=== PATIENT | female | born 1960 | race African-American/Black ===

== ENCOUNTER 2018-08-01 14:39 | Emergency (ER) | payer MEDICAID, OTHER ==
[~2018-08-01] VITALS: Ht 165.1 cm; Wt 150.7 kg
[~2018-08-01 14:39] MED LIST: FAMO20TA3 PO; HALO100A2 IM; blood pressure pill; water pill
[2018-08-01] MEDS ORDERED: ALBUTEROL SULFATE 2.5 MG/3 ML NEBU. NEB ONE (15:30)
[2018-08-01 15:37] LABS: BASO % 1 % (0-3); EOS # 0.2 x10^3/uL (0.0-0.7); EOS % 2 % (0-3); HEMATOCRIT 39.2 % (36.0-47.0); HEMOGLOBIN 13.2 g/dL (12.0-15.5); LYMPH # 1.6 x10^3/uL (1.0-4.8); LYMPH % 25 % (24-48); MEAN CORPUSCULAR HEMOGLOBIN 30 pg (25-35); MEAN CORPUSCULAR HGB CONC 34 g/dL (31-37); MEAN CORPUSCULAR VOLUME 88 fL (79-100); MONO # 0.3 x10^3/uL (0.0-1.1); MONO % 5 % (0-9); NEUT # 4.5 x10^3uL (1.8-7.7); NEUT % 67 % (31-73); PLATELET COUNT 308 x10^3/uL (140-400); RED BLOOD COUNT 4.47 x10^6/uL (3.50-5.40); WHITE BLOOD COUNT 6.6 x10^3/uL (4.0-11.0)
[2018-08-01 15:55] LABS: CALCIUM 9.3 mg/dL (8.5-10.1); CREATININE 0.8 mg/dL (0.6-1.0); GFR 89.5; POTASSIUM 3.9 mmol/L (3.5-5.1)
--- NOTE | 2018-08-01 15:58 | EKG ---
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
[2018-08-01 16:01] LABS: ALBUMIN 3.7 g/dL (3.4-5.0); ALBUMIN/GLOBULIN RATIO 0.9 (1.0-1.7); TOTAL BILIRUBIN 0.4 mg/dL (0.2-1.0); TOTAL PROTEIN 7.7 g/dL (6.4-8.2)
[2018-08-01] MEDS ORDERED: traMADol 50 MG TABLET PO ONE (16:30)
--- NOTE | 2018-08-01 16:32 | PHYS DOC ---
Past Medical History Past Medical History: Anxiety, COPD, Depression, Fibromyalgia, Hypertension Additional Past Medical Histor: obesity Past Surgical History: Cholecystectomy, , Hip Replacement, Tonsillectomy Smoking: Cigarettes, Less than 1pk/day Additional Information: PT REPORTS QUIT SMOKING X 1 YEAR, BUT OCCASIONALLY SMOKES Alcohol Use: Occasionally Drug Use: Marijuana Adult General Chief Complaint Chief Complaint: LOWER EXTREMITY SWELLING HPI HPI Patient is a 58 year old AA females who presents to the ER via POV with complaints of bilateral lower extremity pain and swelling; and shortness of breath with activity for the last week. Pt also reports recent weight gain over the last month and a half. She reports a history of arthritis and fibromyalgia and states that she usually takes tramadol for her pain. Pt reports recent air travel from [place] 2 weeks ago. She denies any chest pain, abdominal pain, or back pain. She states that she has had diarrhea for the last 3 days and has vomited x1 in the last 24 hours. Currently her pain is a 7/10, nothing has helped or worsened her pain level. Pt currently smokes less than 1/2 a pack of cigarettes a day. Review of Systems Review of Systems Constitutional: Denies fever or chills [] Eyes: Denies change in visual acuity, redness, or eye pain [] HENT: Denies nasal congestion or sore throat [] Respiratory: See HPI Cardiovascular: Denies chest pain GI: Denies abdominal pain, nausea, vomiting, or diarrhea [] Musculoskeletal: Denies back pain, see HPI Integument: Denies rash or skin lesions [] Neurologic: Denies headache, focal weakness or sensory changes [] All other systems were reviewed and found to be within normal limits, except as documented in this note. Current Medications Current Medications Current Medications Medications (Trade) Dose Ordered Sig/Amanda Start Time Stop Time Status Last Admin Dose Admin Albuterol Sulfate (Ventolin Neb Soln) 2.5 mg 1X ONCE 08/01/18 15:30 08/01/18 15:31 DC 08/01/18 15:39 2.5 MG Info (CONTRAST GIVEN -- Rx MONITORING) 1 each PRN DAILY PRN 08/01/18 17:30 08/01/18 19:32 DC Iohexol (Omnipaque 300 Mg/ml) 100 ml 1X ONCE 08/01/18 17:30 08/01/18 17:31 DC 08/01/18 17:40 100 ML Sodium Chloride 1,000 ml @ 1,000 mls/hr 1X ONCE 08/01/18 17:15 08/01/18 18:14 DC 08/01/18 17:15 1,000 MLS/HR Tramadol HCl (Ultram) 50 mg 1X ONCE 08/01/18 16:30 08/01/18 16:31 DC 08/01/18 16:34 50 MG Allergies Allergies Allergies Coded Allergies Type Severity Reaction Last Updated Verified No Known Drug Allergies 01/20/14 No Physical Exam Physical Exam Constitutional: Well developed, well nourished, no acute distress, non-toxic appearance. [] HENT: Normocephalic, atraumatic, bilateral external ears normal, oropharynx moist, no oral exudates, nose normal. [] Eyes: PERRLA, EOMI, conjunctiva normal, no discharge. [] Neck: Normal range of motion, no tenderness, supple, no stridor. [] Cardiovascular:Heart rate regular rhythm, no murmur [] Lungs & Thorax: Bilateral breath sounds clear to auscultation [] Abdomen: Bowel sounds normal, soft, no tenderness, no masses, no pulsatile masses. [] Skin: Warm, dry, no erythema, no rash. [] Back: No tenderness, no CVA tenderness. [] Extremities: No tenderness, no cyanosis, no clubbing, ROM intact, no edema. [] Neurologic: Alert and oriented X 3, normal motor function, normal sensory function, no focal deficits noted. [] Psychologic: Affect normal, judgement normal, mood normal. [] Current Patient Data Vital Signs Vital Signs Date Time Temp Pulse Resp B/P (MAP) Pulse Ox O2 Delivery O2 Flow Rate FiO2 08/01/18 19:30 98.0 90 20 148/89 (108) 95 Room Air 98.0 Lab Values Laboratory Tests Test 08/01/18 14:55 08/01/18 16:50 White Blood Count 6.6 x10^3/uL (4.0-11.0) Red Blood Count 4.47 x10^6/uL (3.50-5.40) Hemoglobin 13.2 g/dL (12.0-15.5) Hematocrit 39.2 % (36.0-47.0) Mean Corpuscular Volume 88 fL (79-100) Mean Corpuscular Hemoglobin 30 pg (25-35) Mean Corpuscular Hemoglobin Concent 34 g/dL (31-37) Red Cell Distribution Width 15.0 % (11.5-14.5) H Platelet Count 308 x10^3/uL (140-400) Neutrophils (%) (Auto) 67 % (31-73) Lymphocytes (%) (Auto) 25 % (24-48) Monocytes (%) (Auto) 5 % (0-9) Eosinophils (%) (Auto) 2 % (0-3) Basophils (%) (Auto) 1 % (0-3) Neutrophils # (Auto) 4.5 x10^3uL (1.8-7.7) Lymphocytes # (Auto) 1.6 x10^3/uL (1.0-4.8) Monocytes # (Auto) 0.3 x10^3/uL (0.0-1.1) Eosinophils # (Auto) 0.2 x10^3/uL (0.0-0.7) Basophils # (Auto) 0.0 x10^3/uL (0.0-0.2) D-Dimer (Verenice) 0.64 ug/mlFEU (0.00-0.50) H Sodium Level 141 mmol/L (136-145) Potassium Level 3.9 mmol/L (3.5-5.1) Chloride Level 102 mmol/L (98-107) Carbon Dioxide Level 31 mmol/L (21-32) Anion Gap 8 (6-14) Blood Urea Nitrogen 14 mg/dL (7-20) Creatinine 0.8 mg/dL (0.6-1.0) Estimated GFR (Cockcroft-Gault) 89.5 BUN/Creatinine Ratio 18 (6-20) Glucose Level 107 mg/dL (70-99) H Calcium Level 9.3 mg/dL (8.5-10.1) Total Bilirubin 0.4 mg/dL (0.2-1.0) Aspartate Amino Transferase (AST) 15 U/L (15-37) Alanine Aminotransferase (ALT) 16 U/L (14-59) Alkaline Phosphatase 104 U/L (46-116) Troponin I Quantitative < 0.017 ng/mL (0.000-0.055) DO-Lwj-T-Type Natriuretic Peptide 26 pg/mL (0-124) Total Protein 7.7 g/dL (6.4-8.2) Albumin 3.7 g/dL (3.4-5.0) Albumin/Globulin Ratio 0.9 (1.0-1.7) L Urine Collection Type Unknown Urine Color Yellow Urine Clarity Clear Urine pH 6.5 Urine Specific [place] 1.025 Urine Protein Negative mg/dL (NEG-TRACE) Urine Glucose (UA) Negative mg/dL (NEG) Urine Ketones (Stick) Negative mg/dL (NEG) Urine Blood Negative (NEG) Urine Nitrite Negative (NEG) Urine Bilirubin Negative (NEG) Urine Urobilinogen Dipstick 0.2 mg/dL (0.2 mg/dL) Urine Leukocyte Esterase Negative (NEG) Urine RBC 0 /HPF (0-2) Urine WBC Occ /HPF (0-4) Urine Squamous Epithelial Cells Few /LPF Urine Bacteria Few /HPF (0-FEW) Urine Mucus Slight /LPF Urine Trichomonas Present Laboratory Tests 08/01/18 14:55 Laboratory Tests 08/01/18 14:55 EKG EKG Sinus rhythm, prolonged QT, no STEMI read by Dr. Stratton Radiology/Procedures Radiology/Procedures PROCEDURE: CT ANGIOGRAPHY CHEST CTA Chest with contrast: Clinical History: elevated d dimer cp inj 100ml Omni 300 pt is 332 pounds no prev Shortness of breath. Axial helical images of the chest were obtained after the administration of 100 cc of IV Omni 300 and timed appropriately for a pulmonary arterial study. Conventional axial reconstruction was performed in addition to coronal, sagittal and bilateral oblique MIP (maximum intensity projection). This study was ordered to detect possible pulmonary embolism. There are no filling defects to suggest pulmonary embolism. The lungs and pleural margins are clear. There is no mediastinal or hilar lymphadenopathy. The thoracic aorta appears normal. Impression: 1. No evidence of pulmonary embolism. 2. No significant findings. PROCEDURE: VENOUS LOWER EXT BILATERAL Bilateral Lower Extremity Venous Doppler Ultrasound History: Swelling Comparison: None Procedure: Color flow, duplex, spectral analysis and 2D images are obtained with and without compression in the area of the common femoral vein, superficial femoral vein - femoral vein junction, main femoral vein (superficial femoral vein) and popliteal vein. Veins of the proximal calf are also imaged. Findings: There is normal duplex flow, color flow and compressibility of all visualized vein segments. No evidence of deep venous thrombus is present. Impression: No evidence of DVT. Course & Med Decision Making Course & Med Decision Making Pertinent Labs and Imaging studies reviewed. (See chart for details) Dx: swelling of bilateral lower extremities, short of breath with activity, arthritic like pain Pt was given 50 mg of tramadol PO for pain. CBC unremarkable, CMP unremarkable, UA unremarkable, D-dimer elevated 0.64, troponin <0.017 EKG negative for STEMI, CTA chest was negative for PE, Bilat LE US negative for DVT Prescription was written for [employer] and this DIRECTOR [employer] MARKETING recommend elevation and wearing compression stockings to help reduce swelling of lower extremities. Pt was instructed to follow up with PCP next week, return to the ER if symptoms worsen. Pt verbalized an understanding of d/c instructions, prescription, and follow-up and was in agreement with POC. [] Dragon Disclaimer Dragon Disclaimer This electronic medical record was generated, in whole or in part, using a voice recognition dictation system. Departure Departure Impression: Primary Impression: Swelling of both lower extremities Additional Impressions: Arthritic-like pain Short of breath on exertion Disposition: 01 HOME, SELF-CARE Condition: STABLE Referrals: NO PCP (PCP) Patient Instructions: Arthralgia, Frnh-pr-Hief, Peripheral Edema Additional Instructions: The ultrasound of your legs and the CT of your chest revealed no blood clots. Fill the prescription and use as directed for pain. Recommend elevation and wearing compression stockings to help reduce swelling. Follow up with your PCP next week, return to the ER if symptoms worsen. Scripts Hydrocodone Bit/Acetaminophen (HYDROCODONE-APAP 5-325 ) 1 Each Tablet 1 TAB PO PRN Q6HRS PRN for PAIN for 4 Days, #12 TAB 0 Refills Prov: RAHAT SHANNON CALKER 08/01/18 Problem Qualifiers Additional Impressions: Arthritic-like pain Joint pain location: unspecified Qualified Codes: M25.50 - Pain in unspecified joint RAHAT SHANNON CALKER Aug 01, 2018 16:32
[2018-08-01 17:09] LABS: BILIRUBIN,URINE NEGATIVE (NEG); CLARITY,URINE CLEAR; COLOR,URINE YELLOW; NITRITE,URINE NEGATIVE (NEG); PH,URINE 6.5; PROTEIN,URINE NEGATIVE (NEG-TRACE); UROBILINOGEN,URINE 0.2 mg/dL (0.2 mg/dL)
[2018-08-01] MEDS ORDERED: IV NORMAL SALINE 1000ML BAG 1,000 ML IV ONE (17:15)
[2018-08-01 17:26] LABS: BACTERIA,URINE FEW /HPF (0-FEW); RBC,URINE 0 /HPF (0-2); SQUAMOUS EPITHELIAL CELL,UR FEW /LPF; TRICHOMONAS,URINE PRESENT; WBC,URINE OCC /HPF (0-4)
[2018-08-01] MEDS ORDERED: CONTRAST GIVEN. MC PRN (17:30)
[2018-08-01] MEDS ORDERED: IOHEXOL 300 MG/ML 100ML VIAL. IV ONE (17:30)
--- NOTE | 2018-08-01 17:41 | RAD ---
Bilateral Lower Extremity Venous Doppler Ultrasound History: Swelling Comparison: None Procedure: Color flow, duplex, spectral analysis and 2D images are obtained with and without compression in the area of the common femoral vein, superficial femoral vein - femoral vein junction, main femoral vein (superficial femoral vein) and popliteal vein. Veins of the proximal calf are also imaged. Findings: There is normal duplex flow, color flow and compressibility of all visualized vein segments. No evidence of deep venous thrombus is present. Impression: No evidence of DVT. Electronically signed by: Jose Contreras III, MD (08/01/2018 5:37 PM) [facility]
--- NOTE | 2018-08-01 17:50 | RAD ---
CTA Chest with contrast: Clinical History: elevated d dimer cp inj 100ml Omni 300 pt is 332 pounds no prev Shortness of breath. Axial helical images of the chest were obtained after the administration of 100 cc of IV Omni 300 and timed appropriately for a pulmonary arterial study. Conventional axial reconstruction was performed in addition to coronal, sagittal and bilateral oblique MIP (maximum intensity projection). This study was ordered to detect possible pulmonary embolism. There are no filling defects to suggest pulmonary embolism. The lungs and pleural margins are clear. There is no mediastinal or hilar lymphadenopathy. The thoracic aorta appears normal. Impression: 1. No evidence of pulmonary embolism. 2. No significant findings. PQRS Compliance Statement: One or more of the following individualized dose reduction techniques were utilized for this examination: 1. Automated exposure control 2. Adjustment of the mA and/or kV according to patient size 3. Use of iterative reconstruction technique Electronically signed by: Jose Contreras III, MD (08/01/2018 5:46 PM) [facility]
[2018-08-01] MEDS ORDERED: HYDR-2761 PO (18:59)
[2018-08-01 19:30] VITALS: BP 148/89
== END 2018-08-01 19:32 | disposition home or self-care (01) ==
LOC: ER 14:39
DX: M79.89 Other specified soft tissue disorders (principal); R06.02 Shortness of breath; R19.7 Diarrhea, unspecified; R11.10 Vomiting, unspecified; M19.90 Unspecified osteoarthritis, unspecified site; F41.9 Anxiety disorder, unspecified; J44.9 Chronic obstructive pulmonary disease, unspecified; F32.9 Major depressive disorder, single episode, unspecified; I10 Essential (primary) hypertension; F17.210 Nicotine dependence, cigarettes, uncomplicated; E66.9 Obesity, unspecified; Z68.43 Body mass index [BMI] 50.0-59.9, adult; Z90.49 Acquired absence of other specified parts of digestive tract; Z98.890 Other specified postprocedural states; Z90.89 Acquired absence of other organs; Z96.649 Presence of unspecified artificial hip joint
CPT/HCPCS: 36415; 71275; 80053; 81001; 83880; 84484; 85025; 85379; 93005; 93970; 94640; 96360; 99284; J7030; J7613; Q9967

== ENCOUNTER 2019-01-12 22:37 | Inpatient (IN) | payer MEDICAID, SELFPAY ==
[~2019-01-12] VITALS: Ht 160 cm; Wt 157.4 kg
[~2019-01-12 22:37] MED LIST changes: +HYDR-2761 PO
[2019-01-13] MEDS ORDERED: IPRATRPIUM/ALBUTEROL 0.5/2.5MG 3 ML NEBU. NEB ONE (00:30)
[2019-01-13] MEDS ORDERED: fentaNYL PF VIAL 100 MCG/2 ML VIAL IV ONE (00:30)
--- NOTE | 2019-01-13 00:34 | PHYS DOC ---
Past Medical History Past Medical History: Anxiety, COPD, Depression, Fibromyalgia, Hypertension Additional Past Medical Histor: obesity Past Surgical History: Cholecystectomy, , Hip Replacement, Tonsillectomy Alcohol Use: Occasionally Drug Use: Marijuana Adult General Chief Complaint Chief Complaint: SHORTNESS OF BREATH [facility] HPI Patient is a 58 year old F who presents with shortness of air. She states that two weeks ago she had a fall and has been having back pain and shoulder pain s francis this incident. She thinks her shortness of breath may be partially related to this. She has a history of COPD, she's been feeling much more short of breath over the last 24-48 hours She also reports lower leg swelling and pain that has also been present since the fall. She denies any significant cardiac history. She's had a cough occasional sputum production she feels more short of breath when she is lying flat she notices that her legs are much more swollen than normal Review of Systems Review of Systems Constitutional: Denies fever or chills [] Eyes: Denies change in visual acuity, redness, or eye pain [] HENT: Denies nasal congestion or sore throat [] Respiratory: Reports shortness of breath [] Cardiovascular: No additional information not addressed in HPI [] GI: Denies abdominal pain, nausea, vomiting, bloody stools or diarrhea [] : Denies dysuria or hematuria [] Musculoskeletal: Reports back and shoulder pain [] Integument: Denies rash or skin lesions [] Neurologic: Denies headache, focal weakness or sensory changes [] Endocrine: Denies polyuria or polydipsia [] All other systems were reviewed and found to be within normal limits, except as documented in this note. Current Medications Current Medications Current Medications Medications (Trade) Dose Ordered Sig/Amanda Start Time Stop Time Status Last Admin Dose Admin Albuterol/ Ipratropium (Duoneb) 3 ml 1X ONCE 01/13/19 00:30 01/13/19 00:31 DC 01/13/19 00:40 3 ML Fentanyl Citrate (Fentanyl 2ml Vial) 50 mcg 1X ONCE 01/13/19 00:30 01/13/19 00:31 DC 01/13/19 00:30 50 MCG Info (CONTRAST GIVEN -- Rx MONITORING) 1 each PRN DAILY PRN 01/13/19 02:00 01/15/19 01:59 Iohexol (Omnipaque 350 Mg/ml) 100 ml 1X ONCE 01/13/19 02:15 01/13/19 02:16 DC 01/13/19 02:41 100 ML Methylprednisolone Sodium Succinate (SOLU-Medrol 125MG VIAL) 125 mg 1X ONCE 01/13/19 02:30 01/13/19 02:31 DC Allergies Allergies Allergies Coded Allergies Type Severity Reaction Last Updated Verified No Known Drug Allergies 01/20/14 No Physical Exam Physical Exam Constitutional: Well developed, well nourished, no acute distress, non-toxic appearance. [] HENT: Normocephalic, atraumatic, bilateral external ears normal, oropharynx moist, no oral exudates, nose normal. [] Eyes: PERRLA, EOMI, conjunctiva normal, no discharge. [] Neck: Normal range of motion, no tenderness, supple, no stridor. [] Cardiovascular tachycardic no definite murmurs Lungs & Thorax: Wheezing present bilaterally []increase in respiratory effort noted Abdomen: Bowel sounds normal, soft, no tenderness, no masses, no pulsatile masses. [] Skin: Warm, dry, no erythema, no rash. [] Back: There is tenderness to palpation diffusely in the lower back Extremities: Bilateral swelling in lower extremities 3-4+ edema symmetric, tenderness to palpation diffusely in addition there is tenderness to palpation of the right shoulder range of motion is somewhat limited by pain Neurologic: Alert and oriented X 3, normal motor function, normal sensory function, no focal deficits noted. [] Psychologic: Affect normal, judgement normal, mood anxious Current Patient Data Vital Signs Vital Signs Date Time Temp Pulse Resp B/P (MAP) Pulse Ox O2 Delivery O2 Flow Rate FiO2 01/13/19 00:40 94 Room Air 01/13/19 00:30 18 01/12/19 23:18 97.6 130 135/95 (108) 97.6 Lab Values Laboratory Tests Test 01/13/19 01:20 White Blood Count 6.8 x10^3/uL (4.0-11.0) Red Blood Count 4.30 x10^6/uL (3.50-5.40) Hemoglobin 12.0 g/dL (12.0-15.5) Hematocrit 37.8 % (36.0-47.0) Mean Corpuscular Volume 88 fL (79-100) Mean Corpuscular Hemoglobin 28 pg (25-35) Mean Corpuscular Hemoglobin Concent 32 g/dL (31-37) Red Cell Distribution Width 16.7 % (11.5-14.5) H Platelet Count 256 x10^3/uL (140-400) Neutrophils (%) (Auto) 65 % (31-73) Lymphocytes (%) (Auto) 25 % (24-48) Monocytes (%) (Auto) 7 % (0-9) Eosinophils (%) (Auto) 1 % (0-3) Basophils (%) (Auto) 1 % (0-3) Neutrophils # (Auto) 4.4 x10^3uL (1.8-7.7) Lymphocytes # (Auto) 1.7 x10^3/uL (1.0-4.8) Monocytes # (Auto) 0.5 x10^3/uL (0.0-1.1) Eosinophils # (Auto) 0.1 x10^3/uL (0.0-0.7) Basophils # (Auto) 0.1 x10^3/uL (0.0-0.2) Prothrombin Time 11.8 SEC (11.7-14.0) Prothrombin Time INR 0.9 (0.8-1.1) Sodium Level 144 mmol/L (136-145) Potassium Level 3.5 mmol/L (3.5-5.1) Chloride Level 105 mmol/L (98-107) Carbon Dioxide Level 31 mmol/L (21-32) Anion Gap 8 (6-14) Blood Urea Nitrogen 24 mg/dL (7-20) H Creatinine 1.1 mg/dL (0.6-1.0) H Estimated GFR (Cockcroft-Gault) 61.9 BUN/Creatinine Ratio 22 (6-20) H Glucose Level 112 mg/dL (70-99) H Calcium Level 8.7 mg/dL (8.5-10.1) Total Bilirubin 0.3 mg/dL (0.2-1.0) Aspartate Amino Transferase (AST) 13 U/L (15-37) L Alanine Aminotransferase (ALT) 20 U/L (14-59) Alkaline Phosphatase 77 U/L (46-116) Troponin I Quantitative < 0.017 ng/mL (0.000-0.055) EH-Uba-E-Type Natriuretic Peptide 42 pg/mL (0-124) Total Protein 6.3 g/dL (6.4-8.2) L Albumin 3.0 g/dL (3.4-5.0) L Albumin/Globulin Ratio 0.9 (1.0-1.7) L Laboratory Tests 01/13/19 01:20 Laboratory Tests 01/13/19 01:20 EKG EKG []EKG shows normal sinus rhythm rate of 87 no acute ischemic changes noted interpreted by me time of encounter Radiology/Procedures Radiology/Procedures [] Impressions: CT scan shows no saddle PE somewhat limited opacification of the distal arteries Course & Med Decision Making Course & Med Decision Making Pertinent Labs and Imaging studies reviewed. (See chart for details) []58-year-old obese female history of fibromyalgia as well as COPD was presenting with shortness of breath was tachycardic to 130 in triage and lactate came down on reevaluation. We worked her up I was concerned about congestive he art failure based on x-ray and lower extremity edema however BNP negative she is obese it could've been falsely negative we did give a dose of Lasix patient was having desaturations while asleep I think mostly related to obstructive sleep apnea however patient was actively wheezing in the emergency room we did give steroids and neb we did a CT scan to check for PE given the initial tachycardia although that was suboptimal study but no obvious PE was identified. Patient be admitted to the service of Dr. Devika Perales Disclaimer Diaz Disclaimer This electronic medical record was generated, in whole or in part, using a voice recognition dictation system. Departure Departure Impression: Primary Impression: Shortness of breath Disposition: ADMITTED INPATIENT Admitting Physician: Other Condition: STABLE Referrals: NO PCP (PCP) SUZAN WHATLEY MD January 13, 2019 00:34
[2019-01-13 01:36] LABS: BASO # 0.1 x10^3/uL (0.0-0.2); BASO % 1 % (0-3); EOS # 0.1 x10^3/uL (0.0-0.7); EOS % 1 % (0-3); HEMATOCRIT 37.8 % (36.0-47.0); LYMPH # 1.7 x10^3/uL (1.0-4.8); LYMPH % 25 % (24-48); MEAN CORPUSCULAR HEMOGLOBIN 28 pg (25-35); MEAN CORPUSCULAR HGB CONC 32 g/dL (31-37); MEAN CORPUSCULAR VOLUME 88 fL (79-100); MONO # 0.5 x10^3/uL (0.0-1.1); MONO % 7 % (0-9); NEUT # 4.4 x10^3uL (1.8-7.7); NEUT % 65 % (31-73); PLATELET COUNT 256 x10^3/uL (140-400); RED CELL DISTRIBUTION WIDTH 16.7 % (11.5-14.5); WHITE BLOOD COUNT 6.8 x10^3/uL (4.0-11.0)
[2019-01-13 01:45] LABS: PROTHROMBIN TIME PATIENT 11.8 SEC (11.7-14.0)
[2019-01-13 01:48] LABS: CALCIUM 8.7 mg/dL (8.5-10.1); CREATININE 1.1 mg/dL (0.6-1.0); GFR 61.9; POTASSIUM 3.5 mmol/L (3.5-5.1)
[2019-01-13 01:53] LABS: ALBUMIN/GLOBULIN RATIO 0.9 (1.0-1.7); TOTAL BILIRUBIN 0.3 mg/dL (0.2-1.0); TOTAL PROTEIN 6.3 g/dL (6.4-8.2)
[2019-01-13] MEDS ORDERED: CONTRAST GIVEN. MC PRN (02:00)
[2019-01-13] MEDS ORDERED: IOHEXOL 350 MG/ML 100 ML VIAL. IV ONE (02:15)
[2019-01-13] MEDS ORDERED: methylPREDNISolone SOD SUCC PF 125 MG/2 ML VIAL. IV ONE (02:30)
--- NOTE | 2019-01-13 03:02 | RAD ---
PQRS Compliance Statement: One or more of the following individualized dose reduction techniques were utilized for this examination: 1. Automated exposure control 2. Adjustment of the mA and/or kV according to patient size 3. Use of iterative reconstruction technique CT CHEST WITH CONTRAST, PULMONARY ANGIOGRAM History: Shortness of air, desaturation. Comparison: CT chest with contrast, CT PE August 01, 2018. Technique: Helical CT of the chest was performed after the administration of 100 cc of Omnipaque 350 intravenous contrast according to PE protocol. Axial and coronal reconstructions were obtained. 3-D MIP images were constructed to better evaluate the pulmonary arteries. Findings: Pulmonary arteries are suboptimally opacified. There is no large saddle embolus. Lobar, segmental, and subsegmental pulmonary arteries cannot be evaluated. There is no thoracic aortic dissection. There is outside of [id number] artifact that degrades image quality. Visualized thyroid is symmetric. Calcified subcarinal and right hilar lymph nodes. No adenopathy is seen in the chest. Cardiac size normal. Small pericardial effusion. There is no pleural effusion. Central airways are patent. Stable focal bronchiectasis in the central right upper lobe. Calcified granuloma right upper lobe. Mild atelectasis in the bilateral lower lobes. Discoid atelectasis basilar left lower lobe. Visualized upper abdomen is unremarkable. No compression fracture in the thoracic spine. IMPRESSION: 1. There is no large saddle pulmonary embolus. Lobar, segmental, and subsegmental pulmonary arteries cannot be evaluated due to limited contrast opacification. 2. Small pericardial effusion. Electronically signed by: Vahid Rios MD (01/13/2019 2:59 AM) [facility]
[2019-01-13] MEDS ORDERED: FUROSEMIDE 20 MG/2 ML VIAL. IVP ONE (03:45)
--- NOTE | 2019-01-13 04:36 | RAD ---
PORTABLE CHEST 1V Clinical Indication: Shortness of breath Comparison: Two-view chest February 04, 2014. Findings: Left costophrenic angle is partially excluded. Cardiac size upper limits of normal. Stable calcified granuloma right midlung. Stable tiny calcified AP window lymph node. Pulmonary vasculature upper limits of normal. No focal airspace disease. There is no pneumothorax. No pleural effusion is appreciated. No acute bone abnormality. IMPRESSION: Cardiac size and pulmonary vasculature upper limits of normal. Electronically signed by: Vahid Rios MD (01/13/2019 4:33 AM) [facility]
--- NOTE | 2019-01-13 04:49 | RAD ---
LUMBAR SPINE 3 VIEWS Clinical Indication: Back pain after fall. Morbid obesity. Comparison: None. Findings: Alignment of the lumbar spine appears anatomic. Vertebral body height is maintained. There is no evidence of acute fracture or acute malalignment. The visualized pelvic bones appear intact. Degenerative endplate spurring in the lower thoracic spine. Surgical clips along the inferior margin of the liver. IMPRESSION: No acute fracture or malalignment. Electronically signed by: Vahid Rios MD (01/13/2019 4:47 AM) [facility]
--- NOTE | 2019-01-13 04:53 | RAD ---
RIGHT SHOULDER , 3 VIEWS Clinical Indication: Pain after fall. Comparison: None. Findings: There is no acute fracture or dislocation. The acromioclavicular and glenohumeral joints are intact. There are mild degenerative changes. Small calcified granuloma peripheral right midlung. The visualized lung is clear. There is no evidence of a displaced rib fracture. There is no soft tissue abnormality. IMPRESSION: No acute fracture or dislocation. Electronically signed by: Vahid Rios MD (01/13/2019 4:50 AM) [facility]
[2019-01-13 04:54] VITALS: BP 147/108
--- NOTE | 2019-01-13 06:40 | EKG ---
[facility] [address] [place] [address] Test Date: 2019-01-13 Test Time: 02:04:00 Pat Name: BRYANNA CHACKO Department: Room: 648 1 Gender: F Waste Examiner: DMITRY : 1960 Requested By: SUZAN WHATLEY Order Number: [id number] Reading MD: Melecio Mendez Measurements Intervals [place] Rate: 86 P: 51 [place]: 178 QRS: 16 QRSD: 84 T: 44 QT: 386 QTc: 465 Interpretive Statements SINUS RHYTHM NORMAL ECG Electronically Signed On 02-06-2019 11:43:54 CDT by Melecio Mendez
[2019-01-13 07:00] VITALS: BP 152/103
[2019-01-13] MEDS: IPRATRPIUM/ALBUTEROL 0.5/2.5MG 3 ML NEBU. NEB SCH ×4 (07:12→19:51)
--- NOTE | 2019-01-13 08:58 | PDOC1 ---
History and Physical Date of Admission Date of Admission DATE: 01/13/19 TIME: 08:58 History of Present Illness History of Present Illness Ms. Driscoll, is a 58 year old F who admit from ER with acute shortness of air. sje starte with back pain and shoulder pain after a fall, then is having more trouble breathing She has a history of COPD, she's been feeling much more short of breath over the last 24-48 hours She also reports lower leg swelling and pain that has also been present since the fall. no history of cardiac She denies any significant cardiac history. She's had a cough occasional sputum production she feels more short of breath when she is lying flat she notices dulce t her legs are much more swollen than normal Past Medical History Cardiovascular: CHF, HTN Hepatobiliary: No pertinent hx Psych: No pertinent hx Rheumatologic: Fibromyalgia, Rheumatoid arthritis Social History Smoke: No ALCOHOL: none Current Problem List Problem List Problems Medical Problems: (1) Shortness of breath Status: Acute Current Medications Current Medications Current Medications Fentanyl Citrate (Fentanyl 2ml Vial) 50 mcg 1X ONCE IV Last administered on 01/13/19at 00:30; Start 01/13/19 at 00:30; Stop 01/13/19 at 00:31; Status DC Albuterol/ Ipratropium (Duoneb) 3 ml 1X ONCE NEB Last administered on 01/13/19at 00:40; Start 01/13/19 at 00:30; Stop 01/13/19 at 00:31; Status DC Iohexol (Omnipaque 350 Mg/ml) 100 ml 1X ONCE IV Last administered on 01/13/19at 02:41; Start 01/13/19 at 02:15; Stop 01/13/19 at 02:16; Status DC Info (CONTRAST GIVEN -- Rx MONITORING) 1 each PRN DAILY PRN MC SEE COMMENTS; Start 01/13/19 at 02:00; Stop 01/15/19 at 01:59 Methylprednisolone Sodium Succinate (SOLU-Medrol 125MG VIAL) 125 mg 1X ONCE IV Last administered on 01/13/19at 04:35; Start 01/13/19 at 02:30; Stop 01/13/19 at 02:31; Status DC Furosemide (Lasix) 20 mg 1X ONCE IVP Last administered on 01/13/19at 04:36; Start 01/13/19 at 03:45; Stop 01/13/19 at 03:46; Status DC Albuterol/ Ipratropium (Duoneb) 3 ml RTQID NEB Last administered on 01/13/19at 07:12; Start 01/13/19 at 08:00; Stop 01/14/19 at 07:59 Active Scripts Active Hydrocodone-Apap 5-325 (Hydrocodone Bit/Acetaminophen) 1 Each Tablet 1 Tab PO PRN Q6HRS PRN 4 Days Reported Haldol Decanoate 100 (Haloperidol Decanoate) 100 Mg/1 Ml Ampul 100 Mg IM [water pill] Acid Interlocker (Famotidine) 20 Mg Tablet 20 Mg PO [blood pressure pill] Allergies Allergies: Coded Allergies: No Known Drug Allergies (Unverified , 01/20/14) ROS General: YES: Chills, Fatigue, Malaise PSYCHOLOGICAL ROS: No: Anxiety, Behavioral Disorder, Concentration difficultie, Decreased libido, Depression, Disorientation, Hallucinations, Hostility, Irritablity, Memory difficulties, Mood Swings, Obsessive thoughts, Physical abuse, Sexual abuse, Sleep disturbances, Suicidal ideation, Other Eyes: No Blurry vision, No Decreased vision, No Double vision, No Dry eyes, No Excessive tearing, No Eye Pain, No Itchy Eyes, No Loss of vision, No Photophobia, No Scotomata, No Uses contacts, No Uses glasses, No Other HEENT: YES: Heacaches Respiratory: YES: Shortness of breath, SOB with excertion, Sputum Changes; No: Cough, Hemoptysis, Orthopnea, Pleuritic Pain, Stridor, Tachypnea, Wheezing, Other Cardiovascular: yes Chest Pain; No Palpitations, No Orthopnea, No Paroxysmal Noc. Dyspnea, No Edema, No Lt Headedness, No Other Gastrointestinal: Yes Nausea Genitourinary: YES Incontinence; No Dysuria, No Frequency, No Hematuria, No Retention, No Discharge, No Urgency, No Pain, No Flank Pain, No Other, No , No , No , No , No , No , No Musculoskeletal: Yes Joint Pain, Yes Joint Stiffness; No Gait Disturbance, No Joint Swelling, No Muscle Pain, No Muscular Weakness, No Pain In:, No Swelling In:, No Other Neurological: No Behavorial Changes, No Bowel/Bladder ControlChng, No Confus ion, No Dizziness, No Gait Disturbance, No Headaches, No Impaired Coord/balance, No Memory Loss, No Numbness/Tingling, No Seizures, No Speech Problems, No Tremors, No Visual Changes, No Weakness, No Other Skin: No Dry Skin, No Eczema, No Hair Changes, No Lumps, No Mole Changes, No Mottling, No Nail Changes, No Pruritus, No Rash, No Skin Lesion Changes, No Othe r, No Acne Physical Exam General: Alert, Cooperative, mild distress HEENT: PERRLA, EOMI Lungs: Clear to auscultation Abdomen: Soft Extremities: Normal pulses Neuro: Normal speech, Normal tone Psych/Mental Status: Mood NL Vitals Vitals Vital Signs Date Time Temp Pulse Resp B/P (MAP) Pulse Ox O2 Delivery O2 Flow Rate FiO2 01/13/19 07:14 96 Nasal Cannula 1.0 01/13/19 07:00 97.9 107 24 152/103 (119) 97.9 Labs Labs Laboratory Tests Test 01/13/19 01:20 White Blood Count 6.8 x10^3/uL (4.0-11.0) Red Blood Count 4.30 x10^6/uL (3.50-5.40) Hemoglobin 12.0 g/dL (12.0-15.5) Hematocrit 37.8 % (36.0-47.0) Mean Corpuscular Volume 88 fL (79-100) Mean Corpuscular Hemoglobin 28 pg (25-35) Mean Corpuscular Hemoglobin Concent 32 g/dL (31-37) Red Cell Distribution Width 16.7 % (11.5-14.5) Platelet Count 256 x10^3/uL (140-400) Neutrophils (%) (Auto) 65 % (31-73) Lymphocytes (%) (Auto) 25 % (24-48) Monocytes (%) (Auto) 7 % (0-9) Eosinophils (%) (Auto) 1 % (0-3) Basophils (%) (Auto) 1 % (0-3) Neutrophils # (Auto) 4.4 x10^3uL (1.8-7.7) Lymphocytes # (Auto) 1.7 x10^3/uL (1.0-4.8) Monocytes # (Auto) 0.5 x10^3/uL (0.0-1.1) Eosinophils # (Auto) 0.1 x10^3/uL (0.0-0.7) Basophils # (Auto) 0.1 x10^3/uL (0.0-0.2) Prothrombin Time 11.8 SEC (11.7-14.0) Prothromb Time International Ratio 0.9 (0.8-1.1) Sodium Level 144 mmol/L (136-145) Potassium Level 3.5 mmol/L (3.5-5.1) Chloride Level 105 mmol/L (98-107) Carbon Dioxide Level 31 mmol/L (21-32) Anion Gap 8 (6-14) Blood Urea Nitrogen 24 mg/dL (7-20) Creatinine 1.1 mg/dL (0.6-1.0) Estimated GFR (Cockcroft-Gault) 61.9 BUN/Creatinine Ratio 22 (6-20) Glucose Level 112 mg/dL (70-99) Calcium Level 8.7 mg/dL (8.5-10.1) Total Bilirubin 0.3 mg/dL (0.2-1.0) Aspartate Amino Transf (AST/SGOT) 13 U/L (15-37) Alanine Aminotransferase (ALT/SGPT) 20 U/L (14-59) Alkaline Phosphatase 77 U/L (46-116) Troponin I Quantitative < 0.017 ng/mL (0.000-0.055) GC-Lez-V-Type Natriuretic Peptide 42 pg/mL (0-124) Total Protein 6.3 g/dL (6.4-8.2) Albumin 3.0 g/dL (3.4-5.0) Albumin/Globulin Ratio 0.9 (1.0-1.7) Laboratory Tests Test 01/13/19 01:20 White Blood Count 6.8 x10^3/uL (4.0-11.0) Red Blood Count 4.30 x10^6/uL (3.50-5.40) Hemoglobin 12.0 g/dL (12.0-15.5) Hematocrit 37.8 % (36.0-47.0) Mean Corpuscular Volume 88 fL (79-100) Mean Corpuscular Hemoglobin 28 pg (25-35) Mean Corpuscular Hemoglobin Concent 32 g/dL (31-37) Red Cell Distribution Width 16.7 % (11.5-14.5) Platelet Count 256 x10^3/uL (140-400) Neutrophils (%) (Auto) 65 % (31-73) Lymphocytes (%) (Auto) 25 % (24-48) Monocytes (%) (Auto) 7 % (0-9) Eosinophils (%) (Auto) 1 % (0-3) Basophils (%) (Auto) 1 % (0-3) Neutrophils # (Auto) 4.4 x10^3uL (1.8-7.7) Lymphocytes # (Auto) 1.7 x10^3/uL (1.0-4.8) Monocytes # (Auto) 0.5 x10^3/uL (0.0-1.1) Eosinophils # (Auto) 0.1 x10^3/uL (0.0-0.7) Basophils # (Auto) 0.1 x10^3/uL (0.0-0.2) Prothrombin Time 11.8 SEC (11.7-14.0) Prothromb Time International Ratio 0.9 (0.8-1.1) Sodium Level 144 mmol/L (136-145) Potassium Level 3.5 mmol/L (3.5-5.1) Chloride Level 105 mmol/L (98-107) Carbon Dioxide Level 31 mmol/L (21-32) Anion Gap 8 (6-14) Blood Urea Nitrogen 24 mg/dL (7-20) Creatinine 1.1 mg/dL (0.6-1.0) Estimated GFR (Cockcroft-Gault) 61.9 BUN/Creatinine Ratio 22 (6-20) Glucose Level 112 mg/dL (70-99) Calcium Level 8.7 mg/dL (8.5-10.1) Total Bilirubin 0.3 mg/dL (0.2-1.0) Aspartate Amino Transf (AST/SGOT) 13 U/L (15-37) Alanine Aminotransferase (ALT/SGPT) 20 U/L (14-59) Alkaline Phosphatase 77 U/L (46-116) Troponin I Quantitative < 0.017 ng/mL (0.000-0.055) DY-Yqw-W-Type Natriuretic Peptide 42 pg/mL (0-124) Total Protein 6.3 g/dL (6.4-8.2) Albumin 3.0 g/dL (3.4-5.0) Albumin/Globulin Ratio 0.9 (1.0-1.7) VTE Prophylaxis Ordered VTE Prophylaxis Devices: No VTE Pharmacological Prophylaxi: Yes Assessment/Plan Assessment/Plan COPD, acute bronchitis acute hypoxic resp failure chest pain, r/o ACS RA, diffuse pain, on disability morbid obesity, BMI 61 admit BRADLEY TANG MD January 13, 2019 08:58
[2019-01-13] MEDS ORDERED: POTASSIUM CHLORIDE 20 MEQ TABLET.ER. PO ONE (09:30)
--- NOTE | 2019-01-13 10:05 | NUR ---
Please order PT/OT eval when pt deemed appropriate. Pt admitted for fall and COPD exacerbation. Pt would benefit from further therapy evaluation. Addendum: 01/13/19 at 1005 by KIMI CEE, PT PT Amended: Links added.
[2019-01-13] MEDS: LIDOCAINE (700MG/PATCH) PATCH. TD SCH (10:14)
[2019-01-13 11:00] VITALS: BP 133/89
[2019-01-13] MEDS: PANTOPRAZOLE 40 MG TABLET.DR. PO SCH (13:24)
[2019-01-13] MEDS: IBUPROFEN 200 MG TABLET. PO SCH ×2 (13:24→18:23)
[2019-01-13 16:00] VITALS: BP 143/90
--- NOTE | 2019-01-13 16:15 | NUR ---
YESSY consulted for dc needs. Chart reviewed and HUDSON RN. Spoke with pt in room and pt reports she is currently staying at a boarding house in [facility] and plans to move to [place] to be closer to family. SW informed pt she might look into places that are for 55 year and above that fits her budget. SW also informed her if she moves to [place] she would have to apply for [place] Medicaid. Pt reports she was diagnosed with Bipolar disorder a long time ago and goes to [facility] for services. SW provided support and counseling as pt states she is going through a lot of hardship. Discussed about acute rehab and Pt agreeable with [facility]. SW left a voice mail to [facility] regarding pt. HUDSON RN. Will continue to follow.
[2019-01-13 19:05] VITALS: BP 121/81
[2019-01-13] MEDS: PATCH REMOVAL. MC SCH (21:30)
[2019-01-13 23:05] VITALS: BP 135/91
[2019-01-14 03:05] VITALS: BP 130/88
[2019-01-14] MEDS: traMADol 50 MG TABLET PO PRN ×2 (04:29→21:49)
[2019-01-14 07:00] VITALS: BP 145/101
[2019-01-14] MEDS: IPRATRPIUM/ALBUTEROL 0.5/2.5MG 3 ML NEBU. NEB SCH ×4 (07:18→19:41)
[2019-01-14] MEDS: PANTOPRAZOLE 40 MG TABLET.DR. PO SCH (08:03)
[2019-01-14] MEDS: LIDOCAINE (700MG/PATCH) PATCH. TD SCH (08:05)
[2019-01-14] MEDS: IBUPROFEN 200 MG TABLET. PO SCH ×3 (08:05→17:41)
--- NOTE | 2019-01-14 08:34 | NUR ---
SW following pt. Spoke with Alexa at [facility] this morning and they declined to take Pt as Pt is too high functioning for acute rehab placement.
--- NOTE | 2019-01-14 09:02 | CONS ---
DATE OF CONSULTATION: 01/13/2019 ATTENDING PHYSICIAN: Dr. Briggs. REASON FOR CONSULTATION: The patient was seen at the request of Dr. Briggs for rehab evaluation about her right shoulder pain. 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 The patient was admitted on 01/13/2019 with shortness of breath. The patient admits pain in her right shoulder and upper back area after she fell recently and since then, she is having trouble with breathing in the last few days. The patient denies any cardiac history. The patient admits some cough with occasional sputum production, admits more shortness of breath while supine and also noted her legs are much more swollen than normal. Past medical history includes congestive heart failure, hypertension, fibromyalgia, rheumatoid arthritis, status post left total hip arthroplasty. The patient states that she was advised to use gloves to her hand to help with tingling and numbness for carpal tunnel syndrome. She is not known allergic to any medication. She lives in [place], [place] home, had stairs to manage. The patient since admission had CTA of the chest, which revealed no evidence of any pulmonary emboli, small pericardial effusion was noted. Chest x-ray failed to reveal any abnormalities. Lumbar spine x-rays revealed degenerative endplate spurring in the lower thoracic spine. Surgical clips along the inferior margin of the liver. X-ray of right shoulder failed to reveal any abnormality, small calcified granuloma in peripheral right mid lung was noted, mild degenerative changes noted in the AC joint and glenohumeral joint. PHYSICAL EXAMINATION: The patient on physical examination today revealed a middle-aged female. She is alert, oriented to time, place, person and circumstance and follows commands appropriately, moves all 4 extremities voluntarily where she had 4+/5 grade muscle strength and deep tendon reflexes are decreased overall with absent knee and ankle jerks and she had equal perception of touch and pinprick sensation bilaterally. Negative Tinel sign over median nerve at the wrist and over ulnar nerve at the wrist and elbow and negative Phalen sign at both wrists. She had tenderness to palpation over right shoulder and over right posterior shoulder girdle muscles. She had painful range of motion of her cervical spine. She also had some tenderness to palpation over the sacroiliac joint area. Straight leg raising test is negative bilaterally. She is independent with bed mobility and transfers and up walking without any difficulty. Her oxygen saturation on room air is around in 91-92% when she takes deep breathing. If she does not take the deep breathing, it goes down to 88-89%. She had crepitus on range of motion of her knee joint without any obvious knee joint effusion. ASSESSMENT: A middle-aged female with right shoulder sprain with recent fall, superimposed on degenerative changes in right shoulder, also chronic lower back pain without any clinical evidence of ongoing lumbar radiculopathy, morbid obesity, peripheral neuropathy, degenerative joints of both knees, congestive heart failure, hypertension, history of fibromyalgia and rheumatoid arthritis. RECOMMENDATION: To try physical modality to her right shoulder and to start her on anti-inflammatory medication and hopefully home with outpatient followup when medically stable. Dr. Briggs, I appreciate asking me to participate in the care of this interesting patient. I will be glad to follow her with you as needed for her rehabilitation. ARNOLD BAEZ MD DR: DILIP/wilian JOB#: [id number] / [id number]
[2019-01-14] MEDS ORDERED: LOSA100T14 PO (10:16)
[2019-01-14] MEDS ORDERED: ATOR10TA PO (10:16)
[2019-01-14] MEDS ORDERED: AMLO10TA4 PO (10:16)
[2019-01-14] MEDS ORDERED: MONT10TA9 PO (10:16)
[2019-01-14] MEDS ORDERED: ALBU2.5V8 INH (10:16)
[2019-01-14] MEDS ORDERED: CITA40TA12 PO (10:16)
--- NOTE | 2019-01-14 10:47 | CONS ---
DATE OF CONSULTATION: PULMONARY CONSULTATION ATTENDING PHYSICIAN: Dr. Newberry. REASON FOR CONSULTATION: Dyspnea. HISTORY OF PRESENT ILLNESS: The patient is a 58-year-old morbidly obese patient with a BMI of 61. She has history of tobacco use for 30+ years and has recently quit tobacco. She came into the hospital complaining of shortness of breath. This was in the last 24-48 hours. She also had a cough with light yellow sputum production. She had some nonspecific chest pain as well and some mild ankle edema. The patient was noted to be wheezing as well. She has a history of marijuana use. She was seen in the Emergency Room. She had a CT angiogram performed, which was reviewed by me. There was suboptimal contrast, but no central pulmonary emboli seen. There were no definite infiltrates seen. There was small pericardial effusion. She was placed on BiPAP overnight. Now, she feels better. PAST MEDICAL HISTORY: Significant for history of CHF, history of hypertension, history of arrhythmias. Fibromyalgia and rheumatoid arthritis. PAST SURGICAL HISTORY: No recent surgery. ALLERGIES: None. SOCIAL HISTORY: She no longer smokes cigarettes, but she has smoked for 30+ years. SYSTEM REVIEW: Twelve-point system obtained. Pertinent positives discussed in my history of present illness, otherwise noncontributory. She denies any headaches, no nausea or vomiting, no diarrhea, no dysuria, no focal weakness, no skin rash, no endocrine issues, no weight loss. FAMILY HISTORY: Noncontributory to lungs. MEDICATIONS: All reviewed as listed in the MRAD including Lovenox for DVT prophylaxis. PHYSICAL EXAMINATION: VITAL SIGNS: Reviewed. She is afebrile, blood pressure on the high side, pulse ox 94% on room air. HEENT: Sclerae nonicteric. NECK: Supple. LUNGS: Diminished breath sounds. No wheezing. CARDIOVASCULAR: Regular rate. ABDOMEN: Soft, obese. EXTREMITIES: With no pitting edema. LABORATORY DATA: Reviewed. White cell count 6.8, hemoglobin 12.0, platelets are 256. BUN and creatinine 24 and 1.1. IMPRESSION: 1. Dyspnea secondary to acute exacerbation of chronic obstructive pulmonary disease triggered by acute bronchitis. 2. No evidence of any pneumonia by CT angiogram. No definite central pulmonary emboli. Otherwise, this was a suboptimal study for distal emboli, but clinically less likely. 3. Marijuana abuse. The patient plans to quit that for good as of this admission. RECOMMENDATIONS: 1. Smoking cessation counseling provided and she agrees to quit tobacco as well as marijuana. 2. Add bronchodilators. 3. P.r.n. BiPAP. 4. Add empiric antibiotic for acute bronchitis. 5. Lovenox dose should be used for DVT prophylaxis dose. 6. Possible discharge in the next 24 hours. 7. The patient has history of sleep apnea for which she is compliant with CPAP. MIRIAM WORLEY MD DR: OLENA/wilian JOB#: [id number] / [id number]
[2019-01-14 11:00] VITALS: BP 136/83
[2019-01-14] MEDS: cefTRIAXone IV Push 1 GM VIAL. IVP SCH (12:57)
--- NOTE | 2019-01-14 14:14 | NUR ---
SW following pt. SW notified Pt regarding [facility] decision about rehab. Pt is provided with information for housing and community resources. Pt states she has her car with her and plans to go to her niece in [facility]. Physician notified.
--- NOTE | 2019-01-14 14:32 | PDOC ---
PROGRESS NOTES Subjective Subjective She admits less pain in her right shoulder area. Objective Objective Vital Signs Date Time Temp Pulse Resp B/P (MAP) Pulse Ox O2 Delivery O2 Flow Rate FiO2 01/14/19 11:12 Room Air 01/14/19 11:00 97.6 97 16 136/83 (100) 97 97.6 01/13/19 16:00 4.0 Intake and Output 01/14/19 07:00 Intake Total 2350 ml Output Total 602 ml Balance 1748 ml Intake Oral 2350 ml Output Urine Total 602 ml # Voids 1 Physical Exam Physical Exam She is alert,supine in bed and continues with tenderness to palpation over right shoulder and upper trapezius muscles and she is walking with roller walker. Assessment Assessment Problems Medical Problems: (1) Shortness of breath Status: Acute Plan Plan of Nursing Home with out patient follow up when medically stable. Comment Review of Relevant I have reviewed the following items jose (where applicable) has been applied. Labs Laboratory Tests Test 01/13/19 01:20 01/13/19 09:15 White Blood Count 6.8 x10^3/uL (4.0-11.0) Red Blood Count 4.30 x10^6/uL (3.50-5.40) Hemoglobin 12.0 g/dL (12.0-15.5) Hematocrit 37.8 % (36.0-47.0) Mean Corpuscular Volume 88 fL (79-100) Mean Corpuscular Hemoglobin 28 pg (25-35) Mean Corpuscular Hemoglobin Concent 32 g/dL (31-37) Red Cell Distribution Width 16.7 % (11.5-14.5) Platelet Count 256 x10^3/uL (140-400) Neutrophils (%) (Auto) 65 % (31-73) Lymphocytes (%) (Auto) 25 % (24-48) Monocytes (%) (Auto) 7 % (0-9) Eosinophils (%) (Auto) 1 % (0-3) Basophils (%) (Auto) 1 % (0-3) Neutrophils # (Auto) 4.4 x10^3uL (1.8-7.7) Lymphocytes # (Auto) 1.7 x10^3/uL (1.0-4.8) Monocytes # (Auto) 0.5 x10^3/uL (0.0-1.1) Eosinophils # (Auto) 0.1 x10^3/uL (0.0-0.7) Basophils # (Auto) 0.1 x10^3/uL (0.0-0.2) Prothrombin Time 11.8 SEC (11.7-14.0) Prothromb Time International Ratio 0.9 (0.8-1.1) Sodium Level 144 mmol/L (136-145) Potassium Level 3.5 mmol/L (3.5-5.1) Chloride Level 105 mmol/L (98-107) Carbon Dioxide Level 31 mmol/L (21-32) Anion Gap 8 (6-14) Blood Urea Nitrogen 24 mg/dL (7-20) Creatinine 1.1 mg/dL (0.6-1.0) Estimated GFR (Cockcroft-Gault) 61.9 BUN/Creatinine Ratio 22 (6-20) Glucose Level 112 mg/dL (70-99) Calcium Level 8.7 mg/dL (8.5-10.1) Total Bilirubin 0.3 mg/dL (0.2-1.0) Aspartate Amino Transf (AST/SGOT) 13 U/L (15-37) Alanine Aminotransferase (ALT/SGPT) 20 U/L (14-59) Alkaline Phosphatase 77 U/L (46-116) Troponin I Quantitative < 0.017 ng/mL (0.000-0.055) < 0.017 ng/mL (0.000-0.055) FV-Juw-A-Type Natriuretic Peptide 42 pg/mL (0-124) Total Protein 6.3 g/dL (6.4-8.2) Albumin 3.0 g/dL (3.4-5.0) Albumin/Globulin Ratio 0.9 (1.0-1.7) Medications Current Medications Fentanyl Citrate (Fentanyl 2ml Vial) 50 mcg 1X ONCE IV Last administered on 01/13/19at 00:30; Start 01/13/19 at 00:30; Stop 01/13/19 at 00:31; Status DC Albuterol/ Ipratropium (Duoneb) 3 ml 1X ONCE NEB Last administered on 01/13/19at 00:40; Start 01/13/19 at 00:30; Stop 01/13/19 at 00:31; Status DC Iohexol (Omnipaque 350 Mg/ml) 100 ml 1X ONCE IV Last administered on 01/13/19at 02:41; Start 01/13/19 at 02:15; Stop 01/13/19 at 02:16; Status DC Info (CONTRAST GIVEN -- Rx MONITORING) 1 each PRN DAILY PRN MC SEE COMMENTS; Start 01/13/19 at 02:00; Stop 01/15/19 at 01:59 Methylprednisolone Sodium Succinate (SOLU-Medrol 125MG VIAL) 125 mg 1X ONCE IV Last administered on 01/13/19at 04:35; Start 01/13/19 at 02:30; Stop 01/13/19 at 02:31; Status DC Furosemide (Lasix) 20 mg 1X ONCE IVP Last administered on 01/13/19at 04:36; Start 01/13/19 at 03:45; Stop 01/13/19 at 03:46; Status DC Albuterol/ Ipratropium (Duoneb) 3 ml RTQID NEB Last administered on 01/14/19at 07:18; Start 01/13/19 at 08:00; Stop 01/14/19 at 07:59; Status DC Lidocaine (Lidoderm) 1 patch DAILY TD Last administered on 01/14/19 08:05; Start 01/13/19 at 09:15 Miscellaneous (Lidoderm Patch Removal) 1 ea QHS MC Last administered on 01/13/19at 21:30; Start 01/13/19 at 21:00 Potassium Chloride (Klor-Con) 20 meq 1X ONCE PO Last administered on 01/13/19at 10:12; Start 01/13/19 at 09:30; Stop 01/13/19 at 09:31; Status DC Ibuprofen (Motrin) 600 mg TIDAFTMEAL PO Last administered on 01/14/19at 08:05; Start 01/13/19 at 13:00 Pantoprazole Sodium (Protonix) 40 mg DAILYAC PO Last administered on 01/14/19at 08:03; Start 01/13/19 at 13:30 Enoxaparin Sodium (Lovenox Per Pharmacy Prophylaxis Dosing) 1 each PRN DAILY PRN MC SEE COMMENTS; Start 01/13/19 at 16:15; Stop 01/14/19 at 10:26; Status DC Enoxaparin Sodium (Lovenox 60mg Syringe) 60 mg Q12HR SQ Last administered on 01/14/19at 08:06; Start 01/13/19 at 21:00; Stop 01/14/19 at 10:26; Status DC Tramadol HCl (Ultram) 50 mg PRN Q6HRS PRN PO MODERATE PAIN Last administered on 01/14/19at 04:29; Start 01/14/19 at 04:00 Albuterol/ Ipratropium (Duoneb) 3 ml RTQID NEB Last administered on 01/14/19at 11:11; Start 01/14/19 at 12:00 Ceftriaxone Sodium (Rocephin) 1 gm Q24H IVP Last administered on 01/14/19at 12:57; Start 01/14/19 at 11:00 Enoxaparin Sodium (Lovenox 40mg Syringe) 40 mg Q24H SQ ; Start 01/15/19 at 08:00 Active Scripts Active Hydrocodone-Apap 5-325 (Hydrocodone Bit/Acetaminophen) 1 Each Tablet 1 Tab PO PRN Q6HRS PRN 4 Days Reported Proair Hfa Inhaler (Albuterol Sulfate) 8.5 Gm Hfa.aer.ad 1 Puff INH PRN Q6HRS PRN Montelukast Sodium Tablet (Montelukast Sodium) 10 Mg Tablet 10 Mg PO HS Lipitor (Atorvastatin Calcium) 10 Mg Tablet 1 Tab PO DAILY Norvasc (Amlodipine Besylate) 10 Mg Tablet 10 Mg PO DAILY Losartan Potassium 100 Mg Tablet 100 Mg PO DAILY Celexa (Citalopram Hydrobromide) 40 Mg Tablet 1 Tab PO DAILY Haldol Decanoate 100 (Haloperidol Decanoate) 100 Mg/1 Ml Ampul 100 Mg IM Acid Employment Representative (Famotidine) 20 Mg Tablet 20 Mg PO Vitals/I & O Vital Sign - Last 24 Hours 01/13/19 01/13/19 01/13/19 01/13/19 15:30 16:00 19:05 19:52 Temp 98.0 98.2 98.0 98.2 Pulse 113 108 Resp 24 18 B/P (MAP) 143/90 (107) 121/81 (94) Pulse Ox 92 93 94 92 O2 Delivery Room Air Nasal Cannula Room Air Room Air O2 Flow Rate 4.0 01/13/19 01/13/19 01/14/19 5/15/19 20:00 23:05 02:50 03:05 Temp 97.5 97.5 97.5 97.5 Pulse 109 110 Resp 18 18 B/P (MAP) 135/91 (106) 130/88 (102) Pulse Ox 93 94 92 O2 Delivery Room Air Room Air Room Air 01/14/19 01/14/19 01/14/19 01/14/19 07:00 07:20 08:00 11:00 Temp 98.0 97.6 98.0 97.6 Pulse 104 97 Resp 18 16 B/P (MAP) 145/101 (116) 136/83 (100) Pulse Ox 94 94 97 O2 Delivery Room Air Room Air Room Air Room Air 01/14/19 11:12 O2 Delivery Room Air Intake and Output 01/13/19 01/13/19 01/14/19 15:00 23:00 07:00 Intake Total 750 ml 800 ml 800 ml Output Total 2 ml 600 ml Balance 748 ml 200 ml 800 ml ARNOLD BAEZ MD January 14, 2019 14:32
--- NOTE | 2019-01-14 19:05 | PDOC ---
PROGRESS NOTES Chief Complaint Chief Complaint Dyspnea secondary to acute exacerbation of chronic obstructive pulmonary disease triggered by acute bronchitis. Marijuana abuse. counseling done Morbid obesity Peripheral neuropathy History of chronic congestive heart failure most likely combined dysfunction systolic and diastolic Essential hypertension History of fibromyalgia and rheumatoid arthritis . Plan: Will resume her home medications once available for review. We have requested these from her pharmacy in [place] where she has recently moved from We'll have case management see what resources we can offer the patient moving forward for her continued care Further recommendations based on the clinical course History of Present Illness History of Present Illness Patient tearful during my encounter seems to have a lot of stress recent lead moved from [place] and does not seem to be quite acquainted to the area yet. Reassurance has been provided in all concerns were addressed to the best of my abilities Vitals Vitals Vital Signs Date Time Temp Pulse Resp B/P (MAP) Pulse Ox O2 Delivery O2 Flow Rate FiO2 01/14/19 16:07 96 Room Air 01/14/19 11:00 97.6 97 16 136/83 (100) 97.6 01/13/19 16:00 4.0 Physical Exam General: Alert, Cooperative, mild distress Abdomen: Soft Extremities: Normal pulses Review of Systems Review of Systems Review of systems is only pertinent as per history of present illness otherwise 14 point review of system is negative Assessment and Plan Assessmemt and Plan Problems Medical Problems: (1) Shortness of breath Status: Acute Comment Review of Relevant I have reviewed the following items jose (where applicable) has been applied. Labs Laboratory Tests Test 01/13/19 01:20 01/13/19 09:15 White Blood Count 6.8 x10^3/uL (4.0-11.0) Red Blood Count 4.30 x10^6/uL (3.50-5.40) Hemoglobin 12.0 g/dL (12.0-15.5) Hematocrit 37.8 % (36.0-47.0) Mean Corpuscular Volume 88 fL (79-100) Mean Corpuscular Hemoglobin 28 pg (25-35) Mean Corpuscular Hemoglobin Concent 32 g/dL (31-37) Red Cell Distribution Width 16.7 % (11.5-14.5) Platelet Count 256 x10^3/uL (140-400) Neutrophils (%) (Auto) 65 % (31-73) Lymphocytes (%) (Auto) 25 % (24-48) Monocytes (%) (Auto) 7 % (0-9) Eosinophils (%) (Auto) 1 % (0-3) Basophils (%) (Auto) 1 % (0-3) Neutrophils # (Auto) 4.4 x10^3uL (1.8-7.7) Lymphocytes # (Auto) 1.7 x10^3/uL (1.0-4.8) Monocytes # (Auto) 0.5 x10^3/uL (0.0-1.1) Eosinophils # (Auto) 0.1 x10^3/uL (0.0-0.7) Basophils # (Auto) 0.1 x10^3/uL (0.0-0.2) Prothrombin Time 11.8 SEC (11.7-14.0) Prothromb Time International Ratio 0.9 (0.8-1.1) Sodium Level 144 mmol/L (136-145) Potassium Level 3.5 mmol/L (3.5-5.1) Chloride Level 105 mmol/L (98-107) Carbon Dioxide Level 31 mmol/L (21-32) Anion Gap 8 (6-14) Blood Urea Nitrogen 24 mg/dL (7-20) Creatinine 1.1 mg/dL (0.6-1.0) Estimated GFR (Cockcroft-Gault) 61.9 BUN/Creatinine Ratio 22 (6-20) Glucose Level 112 mg/dL (70-99) Calcium Level 8.7 mg/dL (8.5-10.1) Total Bilirubin 0.3 mg/dL (0.2-1.0) Aspartate Amino Transf (AST/SGOT) 13 U/L (15-37) Alanine Aminotransferase (ALT/SGPT) 20 U/L (14-59) Alkaline Phosphatase 77 U/L (46-116) Troponin I Quantitative < 0.017 ng/mL (0.000-0.055) < 0.017 ng/mL (0.000-0.055) IJ-Xhg-U-Type Natriuretic Peptide 42 pg/mL (0-124) Total Protein 6.3 g/dL (6.4-8.2) Albumin 3.0 g/dL (3.4-5.0) Albumin/Globulin Ratio 0.9 (1.0-1.7) Medications Current Medications Fentanyl Citrate (Fentanyl 2ml Vial) 50 mcg 1X ONCE IV Last administered on 01/13/19 00:30; Start 01/13/19 at 00:30; Stop 01/13/19 at 00:31; Status DC Albuterol/ Ipratropium (Duoneb) 3 ml 1X ONCE NEB Last administered on 01/13/19at 00:40; Start 01/13/19 at 00:30; Stop 01/13/19 at 00:31; Status DC Iohexol (Omnipaque 350 Mg/ml) 100 ml 1X ONCE IV Last administered on 01/13/19at 02:41; Start 01/13/19 at 02:15; Stop 01/13/19 at 02:16; Status DC Info (CONTRAST GIVEN -- Rx MONITORING) 1 each PRN DAILY PRN MC SEE COMMENTS; Start 01/13/19 at 02:00; Stop 01/15/19 at 01:59 Methylprednisolone Sodium Succinate (SOLU-Medrol 125MG VIAL) 125 mg 1X ONCE IV Last administered on 01/13/19at 04:35; Start 01/13/19 at 02:30; Stop 01/13/19 at 02:31; Status DC Furosemide (Lasix) 20 mg 1X ONCE IVP Last administered on 01/13/19at 04:36; Start 01/13/19 at 03:45; Stop 01/13/19 at 03:46; Status DC Albuterol/ Ipratropium (Duoneb) 3 ml RTQID NEB Last administered on 01/14/19 07:18; Start 01/13/19 at 08:00; Stop 01/14/19 at 07:59; Status DC Lidocaine (Lidoderm) 1 patch DAILY TD Last administered on 01/14/19 08:05; Start 01/13/19 at 09:15 Miscellaneous (Lidoderm Patch Removal) 1 ea QHS MC Last administered on 01/13/19 21:30; Start 01/13/19 at 21:00 Potassium Chloride (Klor-Con) 20 meq 1X ONCE PO Last administered on 01/13/19at 10:12; Start 01/13/19 at 09:30; Stop 01/13/19 at 09:31; Status DC Ibuprofen (Motrin) 600 mg TIDAFTMEAL PO Last administered on 5/15/19at 17:41; Start 01/13/19 at 13:00 Pantoprazole Sodium (Protonix) 40 mg DAILYAC PO Last administered on 01/14/19at 08:03; Start 01/13/19 at 13:30 Enoxaparin Sodium (Lovenox Per Pharmacy Prophylaxis Dosing) 1 each PRN DAILY PRN MC SEE COMMENTS; Start 01/13/19 at 16:15; Stop 01/14/19 at 10:26; Status DC Enoxaparin Sodium (Lovenox 60mg Syringe) 60 mg Q12HR SQ Last administered on 01/14/19at 08:06; Start 01/13/19 at 21:00; Stop 01/14/19 at 10:26; Status DC Tramadol HCl (Ultram) 50 mg PRN Q6HRS PRN PO MODERATE PAIN Last administered on 01/14/19at 04:29; Start 01/14/19 at 04:00 Albuterol/ Ipratropium (Duoneb) 3 ml RTQID NEB Last administered on 01/14/19at 16:07; Start 01/14/19 at 12:00 Ceftriaxone Sodium (Rocephin) 1 gm Q24H IVP Last administered on 01/14/19at 12:57; Start 01/14/19 at 11:00 Enoxaparin Sodium (Lovenox 40mg Syringe) 40 mg Q24H SQ ; Start 01/15/19 at 08:00 Lactobacillus Rhamnosus (Culturelle) 1 cap BID PO ; Start 01/14/19 at 21:00 Active Scripts Active Hydrocodone-Apap 5-325 (Hydrocodone Bit/Acetaminophen) 1 Each Tablet 1 Tab PO PRN Q6HRS PRN 4 Days Reported Proair Hfa Inhaler (Albuterol Sulfate) 8.5 Gm Hfa.aer.ad 1 Puff INH PRN Q6HRS PRN Montelukast Sodium Tablet (Montelukast Sodium) 10 Mg Tablet 10 Mg PO HS Lipitor (Atorvastatin Calcium) 10 Mg Tablet 1 Tab PO DAILY Norvasc (Amlodipine Besylate) 10 Mg Tablet 10 Mg PO DAILY Losartan Potassium 100 Mg Tablet 100 Mg PO DAILY Celexa (Citalopram Hydrobromide) 40 Mg Tablet 1 Tab PO DAILY Haldol Decanoate 100 (Haloperidol Decanoate) 100 Mg/1 Ml Ampul 100 Mg IM Acid Fisher (Famotidine) 20 Mg Tablet 20 Mg PO Vitals/I & O Vital Sign - Last 24 Hours 01/13/19 01/13/19 01/13/19 01/13/19 19:05 19:52 20:00 23:05 Temp 98.2 97.5 98.2 97.5 Pulse 108 109 Resp 18 18 B/P (MAP) 121/81 (94) 135/91 (106) Pulse Ox 94 92 93 O2 Delivery Room Air Room Air Room Air Room Air 01/14/19 01/14/19 01/14/19 01/14/19 02:50 03:05 07:00 07:20 Temp 97.5 98.0 97.5 98.0 Pulse 110 104 Resp 18 18 B/P (MAP) 130/88 (102) 145/101 (116) Pulse Ox 94 92 94 94 O2 Delivery Room Air Room Air Room Air 01/14/19 01/14/19 01/14/19 01/14/19 08:00 11:00 11:12 16:07 Temp 97.6 97.6 Pulse 97 Resp 16 B/P (MAP) 136/83 (100) Pulse Ox 97 96 O2 Delivery Room Air Room Air Room Air Room Air Intake and Output 01/13/19 01/13/19 01/14/19 15:00 23:00 07:00 Intake Total 750 ml 800 ml 800 ml Output Total 2 ml 600 ml Balance 748 ml 200 ml 800 ml KASSANDRA BLACK MD January 14, 2019 19:05
[2019-01-14 19:42] VITALS: BP 145/91
[2019-01-14] MEDS: PATCH REMOVAL. MC SCH (21:00)
[2019-01-14] MEDS: LACTOBACILLUS RHAMNOSUS GG 1 CAPSULE. PO SCH (21:49)
[2019-01-14 23:14] VITALS: BP 131/79
[2019-01-15 03:06] VITALS: BP_SYST 93
[2019-01-15 07:50] VITALS: BP 150/97
[2019-01-15] MEDS: PANTOPRAZOLE 40 MG TABLET.DR. PO SCH (07:53)
[2019-01-15] MEDS ORDERED: ENOXAPARIN 40 MG/0.4 ML SYRINGE. SQ SCH (08:00)
[2019-01-15] MEDS: LACTOBACILLUS RHAMNOSUS GG 1 CAPSULE. PO SCH (08:22)
[2019-01-15] MEDS: IBUPROFEN 200 MG TABLET. PO SCH (08:23)
[2019-01-15] MEDS: LIDOCAINE (700MG/PATCH) PATCH. TD SCH (08:24)
[2019-01-15] MEDS: IPRATRPIUM/ALBUTEROL 0.5/2.5MG 3 ML NEBU. NEB SCH ×2 (09:36→12:53)
[2019-01-15] MEDS ORDERED: HYDROcodone/APAP 5/325MG 1 TAB TABLET PO PRN (10:00)
[2019-01-15] MEDS ORDERED: ALBUTEROL SULFATE 2.5 MG/3 ML NEBU. NEB PRN (10:15)
[2019-01-15] MEDS ORDERED: amLODIPine BESYLATE 10 MG TABLET PO SCH (10:30)
[2019-01-15] MEDS ORDERED: ATORVASTATIN CALCIUM 10 MG TABLET. PO SCH (10:30)
[2019-01-15] MEDS ORDERED: LOSARTAN POTASSIUM 50 MG TABLET. PO SCH (10:30)
[2019-01-15] MEDS ORDERED: CITALOPRAM 20 MG TABLET. PO SCH (10:30)
[2019-01-15] MEDS ORDERED: FAMOTIDINE 20 MG TABLET. PO SCH (10:30)
[2019-01-15 11:37] VITALS: BP 122/87
[2019-01-15 11:49] VITALS: BP 122/87
[2019-01-15] MEDS: cefTRIAXone IV Push 1 GM VIAL. IVP SCH (11:50)
--- NOTE | 2019-01-15 12:41 | PDOC ---
PULMONARY PROGRESS NOTES Subjective feels better Vitals Vital Signs Date Time Temp Pulse Resp B/P (MAP) Pulse Ox O2 Delivery O2 Flow Rate FiO2 01/15/19 11:49 91 122/87 01/15/19 11:37 98.7 20 93 BiPAP/CPAP 98.7 General: Alert, No acute distress Lungs: Clear Cardiovascular: S1 Abdomen: Soft Neuro Exam: Alert Extremities: No Edema Skin: Warm Medications Active Scripts Medications Dose Route/Sig Max Daily Dose Days Date Category Proair Hfa Inhaler (Albuterol Sulfate) 8.5 Gm Hfa.aer.ad 1 Puff INH PRN Q6HRS PRN 01/14/19 Reported Montelukast Sodium Tablet (Montelukast Sodium) 10 Mg Tablet 10 Mg PO HS 01/14/19 Reported Lipitor (Atorvastatin Calcium) 10 Mg Tablet 1 Tab PO DAILY 01/14/19 Reported Norvasc (Amlodipine Besylate) 10 Mg Tablet 10 Mg PO DAILY 01/14/19 Reported Losartan Potassium 100 Mg Tablet 100 Mg PO DAILY 01/14/19 Reported Celexa (Citalopram Hydrobromide) 40 Mg Tablet 1 Tab PO DAILY 01/14/19 Reported Hydrocodone-Apap 5-325 (Hydrocodone Bit/Acetaminophen) 1 Each Tablet 1 Tab PO PRN Q6HRS PRN 4 08/01/18 Rx Haldol Decanoate 100 (Haloperidol Decanoate) 100 Mg/1 Ml Ampul 100 Mg IM 02/04/14 Reported Acid Mechanical Design Technician (Famotidine) 20 Mg Tablet 20 Mg PO 02/04/14 Reported Impression . 1. Dyspnea secondary to acute exacerbation of chronic obstructive pulmonary disease triggered by acute bronchitis. 2. No evidence of any pneumonia by CT angiogram. No definite central pulmonary emboli. Otherwise, this was a suboptimal study for distal emboli, but clinically less likely. 3. Marijuana abuse. The patient plans to quit that for good as of this admission. Plan . 1. Smoking cessation counseling provided and she agrees to quit tobacco as well as marijuana. 2. bronchodilators. 3. P.r.n. BiPAP. 4. empiric antibiotic for acute bronchitis. 5. Lovenox 6. discharge today. Pt lives in her car 7. The patient has history of sleep apnea for which she is compliant with CPAP. MIRIAM WORLEY MD January 15, 2019 12:41
[2019-01-15] MEDS ORDERED: LEVO500T8 PO (13:01)
--- NOTE | 2019-01-15 13:06 | PDOC3 ---
Discharge Summary Visit Information Date of Admission: January 13, 2019 Date of Discharge: January 15, 2019 Admitting Diagnosis: COPD exacerbation Final Diagnosis Problems Medical Problems: (1) Shortness of breath COPD exacerbation improved Status: Acute Brief Hospital Course Allergies Allergies Coded Allergies Type Severity Reaction Last Updated Verified No Known Drug Allergies 01/20/14 No Vital Signs Vital Signs Date Time Temp Pulse Resp B/P (MAP) Pulse Ox O2 Delivery O2 Flow Rate FiO2 01/15/19 12:54 Room Air 01/15/19 11:49 91 122/87 01/15/19 11:37 98.7 20 93 98.7 Brief Hospital Course Ms. Driscoll, is a 58 year old F who admit from ER with acute shortness of air. sje starte with back pain and shoulder pain after a fall, then is having more trouble breathing She has a history of COPD, she's been feeling much more short of breath over the last 24-48 hours She also reports lower leg swelling and pain that has also been present since the fall. no history of cardiac She denies any significant cardiac history. She's had a cough occasional sputum production she feels more short of breath when she is lying flat she notices that her legs are much more swollen than normal Patient seen in consultation by pulmonology and the following recommendations were given from her big machine consultant which were greatly appreciated. RECOMMENDATIONS: 1. Smoking cessation counseling provided and she agrees to quit tobacco as well as marijuana. 2. Add bronchodilators. 3. P.r.n. BiPAP. 4. Add empiric antibiotic for acute bronchitis. 5. Lovenox dose should be used for DVT prophylaxis dose. 6. Possible discharge in the next 24 hours. 7. The patient has history of sleep apnea for which she is compliant with CPAP. She was seen in consultation by Dr. Rudd as well due to some intractable pain. Patient was given recommendations regarding dietary changes and lifestyle changes. She is going through quite a bit of social disturbances given that she recently moved from [place] in despite having family members she does not have a place to stay. She has been living in her car for quite some time now. Case management has worked diligently noted to get her help and resources in the area and she is going to be going to [facility] in the area so hopefully she will get a place to stay, all of her concerns were addressed to the best of my abilities I have provided a prescription for levofloxacin she can finish her course of antibiotics in the outpatient setting signs and symptoms of alarm discussed prior to discharge all of her concerns were addressed to the best of my abilities Gen.: well-developed well-nourished in no apparent distress Head: Normal shape atraumatic Eyes: Pupils equal reactive to light and accommodation, normal conjunctivae and lids Ears: Normal shape Nose: Normal shape no trauma Mouth: No exudates of the back of throat no thrush no lesions Neck: Supple no JVD no carotid bruit or lymphadenopathy no thyromegaly Chest: Lungs clear to auscultation with good inspiratory effort no crackles rales or rhonchi Cardiovascular: S1-S2 regular rhythm no murmurs gallops or rubs Abdomen: Bowel sounds present soft nontender no hepatosplenomegaly appreciated sign Extremities: No clubbing no cyanosis no edema peripheral pulses palpated bilaterally Neurological: Alert awake oriented in person time place and situation, cranial nerves II through XII intact, no motor or sensory deficits appreciated Psych: Appropriate mood, cooperative Discharge Information Condition at Discharge: Improved Follow Up: Weeks Disposition/Orders: D/C to Home Scheduled Amlodipine Besylate (Norvasc) 10 Mg Tablet, 10 MG PO DAILY for hypertension, (Reported) Entered as Reported by: MALDONADO TIJERINA on 01/14/19 1016 Last Taken: 10 on Unknown Date & Time Last Action: Continued on 01/15/19958 by KASSANDRA BLACK MD Atorvastatin Calcium (Lipitor) 10 Mg Tablet, 1 TAB PO DAILY for hypercholesterolemia, #30 Ref 5 (Reported) Entered as Reported by: MALDONADO TIJERINA on 01/14/19 1016 Last Taken: 10 on Unknown Date & Time Last Action: Continued on 01/15/19958 by KASSANDRA BLACK MD Citalopram Hydrobromide (Celexa) 40 Mg Tablet, 1 TAB PO DAILY for depression, #30 Ref 1 (Reported) Entered as Reported by: MALDONADO TIJERINA on 01/14/19 1016 Last Taken: 40 on Unknown Date & Time Last Action: Converted on 01/15/19958 by KASSANDRA BLACK MD Levofloxacin (Levofloxacin) 500 Mg Tablet, 1 TAB PO DAILY for COPD, #3 Prescribed by: KASSANDRA BLACK MD on 01/15/19 1301 Losartan Potassium (Losartan Potassium) 100 Mg Tablet, 100 MG PO DAILY for HYPERTENSION, (Reported) Entered as Reported by: MALDONADO TIJERINA on 01/14/19 1016 Last Taken: 100 on Unknown Date & Time Last Action: Converted on 01/15/19958 by KASSANDRA BLACK MD Montelukast Sodium (Montelukast Sodium Tablet) 10 Mg Tablet, 10 MG PO HS for FOR ASTHMA, #30 Ref 0 (Reported) Entered as Reported by: MALDONADO TIJERINA on 01/14/19 1016 Last Taken: 10 on Unknown Date & Time Last Action: Converted on 01/15/19958 by KASSANDRA BLACK MD Scheduled PRN Albuterol Sulfate (Proair Hfa Inhaler) 8.5 Gm Hfa.aer.ad, 1 PUFF INH PRN Q6HRS PRN for SHORTNESS OF BREATH, Ref 0 (Reported) Entered as Reported by: MALDONADO TIJERINA on 01/14/19 1016 Last Taken: 1 on Unknown Date & Time Last Action: Continued on 01/15/19958 by KASSANDRA BLACK MD Hydrocodone Bit/Acetaminophen (Hydrocodone-Apap 5-325 ) 1 Each Tablet, 1 TAB PO PRN Q6HRS PRN for PAIN for 4 Days, #12 Ref 0 Prescribed by: RAHAT SHANNON APRN on 08/01/181858 Last Action: Continued on 01/15/19958 by KASSANDRA BLACK MD Miscellaneous Medications Famotidine (Acid Utilization Management Rn) 20 Mg Tablet, 20 MG PO, (Reported) Entered as Reported by: RYAN COOK on 02/04/141620 Last Action: Continued on 01/15/19958 by KASSANDRA BLACK MD Haloperidol Decanoate (Haldol Decanoate 100) 100 Mg/1 Ml Ampul, 100 MG IM, (Reported) Entered as Reported by: RYAN COOK on 02/04/14 162 Discontinued Medications [blood pressure pill] , (Reported) Entered as Reported by: RYAN COOK on 02/04/141620 Last Action: Discontinued on 01/14/19 1016 by MALDONADO TIJERINA [water pill] , (Reported) Entered as Reported by: RYAN COOK on 02/04/14 162 Last Action: Discontinued on 01/14/19 1016 by KASSANDRA CHAUDHARI MD January 15, 2019 13:06
[2019-01-15] MEDS ORDERED: TRAM1TAB4 PO (13:22)
--- NOTE | 2019-01-15 14:16 | NUR ---
Discharge Note: BRYANNA CHACKO Discharge instructions and discharge home medications reviewed with Patient and a copy given. All questions have been answered and understanding verbalized. The following instructions and handouts were given: Discharge Instructions, Prescriptions, COPD and Smoking Cessation Teaching Materials. Discontinued lines and drains: Left Hand PIV removed accidentally by patient, Catheter intact.
--- NOTE | 2019-01-15 14:46 | PDOC ---
PROGRESS NOTES Subjective Subjective No new complaints. Objective Objective Vital Signs Date Time Temp Pulse Resp B/P (MAP) Pulse Ox O2 Delivery O2 Flow Rate FiO2 01/15/19 12:54 Room Air 01/15/19 11:49 91 122/87 01/15/19 11:37 98.7 20 93 98.7 01/13/19 16:00 4.0 Intake and Output 01/15/19 06:59 Intake Total 840 ml Output Total 600 ml Balance 240 ml Intake Oral 840 ml Output Urine Total 600 ml # Voids 3 Physical Exam Physical Exam She is alert and comfortable sitting in bedside chair and less pain right shoulder area. She had tenderness to palpation over right shoulder and right upper trapezius muscle area and some limitation of right shoulder abduction at extremes. Assessment Assessment Problems Medical Problems: (1) Shortness of breath Status: Acute Plan Plan of Care I have again reviewed with her home program of physical modalities,trigger point massage and relaxed stretching exercises to right upper trapezius muscle,Codman's exercises to right shoulder,isometric strengthening exercises to quadriceps muscles and physical modalities and relaxed stretching exercises to low back and proper body mechanics and avoid any activity that irritates her right shoulder and low back. Comment Review of Relevant I have reviewed the following items jose (where applicable) has been applied. Medications Current Medications Fentanyl Citrate (Fentanyl 2ml Vial) 50 mcg 1X ONCE IV Last administered on 01/13/19at 00:30; Start 01/13/19 at 00:30; Stop 01/13/19 at 00:31; Status DC Albuterol/ Ipratropium (Duoneb) 3 ml 1X ONCE NEB Last administered on 01/13/19at 00:40; Start 01/13/19 at 00:30; Stop 01/13/19 at 00:31; Status DC Iohexol (Omnipaque 350 Mg/ml) 100 ml 1X ONCE IV Last administered on 01/13/19at 02:41; Start 01/13/19 at 02:15; Stop 01/13/19 at 02:16; Status DC Info (CONTRAST GIVEN -- Rx MONITORING) 1 each PRN DAILY PRN MC SEE COMMENTS; Start 01/13/19 at 02:00; Stop 01/15/19 at 01:59; Status DC Methylprednisolone Sodium Succinate (SOLU-Medrol 125MG VIAL) 125 mg 1X ONCE IV Last administered on 01/13/19at 04:35; Start 01/13/19 at 02:30; Stop 01/13/19 at 02:31; Status DC Furosemide (Lasix) 20 mg 1X ONCE IVP Last administered on 01/13/19 04:36; Start 01/13/19 at 03:45; Stop 01/13/19 at 03:46; Status DC Albuterol/ Ipratropium (Duoneb) 3 ml RTQID NEB Last administered on 01/14/19 07:18; Start 01/13/19 at 08:00; Stop 01/14/19 at 07:59; Status DC Lidocaine (Lidoderm) 1 patch DAILY TD Last administered on 01/15/19 08:24; Start 01/13/19 at 09:15 Miscellaneous (Lidoderm Patch Removal) 1 ea QHS MC Last administered on 01/14/19 21:00; Start 01/13/19 at 21:00 Potassium Chloride (Klor-Con) 20 meq 1X ONCE PO Last administered on 01/13/19 10:12; Start 01/13/19 at 09:30; Stop 01/13/19 at 09:31; Status DC Ibuprofen (Motrin) 600 mg TIDAFTMEAL PO Last administered on 01/15/19 08:23; Start 01/13/19 at 13:00 Pantoprazole Sodium (Protonix) 40 mg DAILYAC PO Last administered on 01/15/19 07:53; Start 01/13/19 at 13:30 Enoxaparin Sodium (Lovenox Per Pharmacy Prophylaxis Dosing) 1 each PRN DAILY PRN MC SEE COMMENTS; Start 01/13/19 at 16:15; Stop 01/14/19 at 10:26; Status DC Enoxaparin Sodium (Lovenox 60mg Syringe) 60 mg Q12HR SQ Last administered on 01/14/19 08:06; Start 01/13/19 at 21:00; Stop 01/14/19 at 10:26; Status DC Tramadol HCl (Ultram) 50 mg PRN Q6HRS PRN PO MODERATE PAIN 4-6 Last administered on 01/14/19at 21:49; Start 01/14/19 at 04:00 Albuterol/ Ipratropium (Duoneb) 3 ml RTQID NEB Last administered on 5/16/19at 12:53; Start 01/14/19 at 12:00 Ceftriaxone Sodium (Rocephin) 1 gm Q24H IVP Last administered on 01/15/19 11:50; Start 01/14/19 at 11:00 Enoxaparin Sodium (Lovenox 40mg Syringe) 40 mg Q24H SQ Last administered on 01/15/19 08:24; Start 01/15/19 at 08:00 Lactobacillus Rhamnosus (Culturelle) 1 cap BID PO Last administered on 01/15/19at 08:22; Start 01/14/19 at 21:00 Albuterol Sulfate (Ventolin Neb Soln) 2.5 mg PRN Q6HRS PRN NEB SHORTNESS OF BREATH; Start 01/15/19 at 10:15 Amlodipine Besylate (Norvasc) 10 mg DAILY PO Last administered on 01/15/19 11:49; Start 01/15/19 at 10:30 Atorvastatin Calcium (Lipitor) 10 mg DAILY PO Last administered on 01/15/19 11:49; Start 01/15/19 at 10:30 Famotidine (Pepcid) 20 mg DAILY PO Last administered on 01/15/19 11:49; Start 01/15/19 at 10:30 Acetaminophen/ Hydrocodone Bitart (Lortab 5/325) 1 tab PRN Q6HRS PRN PO SEVERE PAIN 7-10; Start 01/15/19 at 10:00 Citalopram Hydrobromide (CeleXA) 40 mg DAILY PO Last administered on 01/15/19 11:47; Start 01/15/19 at 10:30 Losartan Potassium (Cozaar) 100 mg DAILY PO Last administered on 01/15/19 11:48; Start 01/15/19 at 10:30 Montelukast Sodium (Singulair) 10 mg QHS PO ; Start 01/15/19 at 21:00 Active Scripts Active Tramadol-Acetaminophn 37.5-325 (Tramadol Hcl/Acetaminophen) 1 Each Tablet 1 Tab PO TID Levofloxacin 500 Mg Tablet 1 Tab PO DAILY Hydrocodone-Apap 5-325 (Hydrocodone Bit/Acetaminophen) 1 Each Tablet 1 Tab PO PRN Q6HRS PRN 4 Days Reported Proair Hfa Inhaler (Albuterol Sulfate) 8.5 Gm Hfa.aer.ad 1 Puff INH PRN Q6HRS PRN Montelukast Sodium Tablet (Montelukast Sodium) 10 Mg Tablet 10 Mg PO HS Lipitor (Atorvastatin Calcium) 10 Mg Tablet 1 Tab PO DAILY Norvasc (Amlodipine Besylate) 10 Mg Tablet 10 Mg PO DAILY Losartan Potassium 100 Mg Tablet 100 Mg PO DAILY Celexa (Citalopram Hydrobromide) 40 Mg Tablet 1 Tab PO DAILY Haldol Decanoate 100 (Haloperidol Decanoate) 100 Mg/1 Ml Ampul 100 Mg IM Acid Credit Representative (Famotidine) 20 Mg Tablet 20 Mg PO Vitals/I & O Vital Sign - Last 24 Hours 01/14/19 01/14/19 01/14/19 01/14/19 16:07 19:42 19:43 20:11 Temp 97.7 97.7 Pulse 103 Resp 16 B/P (MAP) 145/91 (109) Pulse Ox 96 95 95 O2 Delivery Room Air Room Air Room Air Room Air 01/14/19 01/14/19 01/14/19 01/15/19 21:49 22:56 23:14 03:06 Temp 98.6 98.6 Pulse 96 91 Resp 18 18 16 18 B/P (MAP) 131/79 (96) 93/ Pulse Ox 96 98 O2 Delivery Room Air BiPAP/CPAP Room Air BiPAP/CPAP 01/15/19 01/15/19 01/15/19 01/15/19 07:50 08:00 09:37 11:37 Temp 98.3 98.7 98.3 98.7 Pulse 93 91 Resp 20 20 B/P (MAP) 150/97 (114) 122/87 (99) Pulse Ox 99 98 93 O2 Delivery BiPAP/CPAP Room Air Room Air BiPAP/CPAP 01/15/19 01/15/19 01/15/19 11:48 11:49 12:54 Pulse 91 91 B/P (MAP) 122/87 122/87 O2 Delivery Room Air Intake and Output 01/14/19 01/14/19 01/15/19 14:59 22:59 06:59 Intake Total 480 ml 240 ml 120 ml Output Total 500 ml 100 ml Balance 480 ml -260 ml 20 ml ARNOLD BAEZ MD January 15, 2019 14:46
[2019-01-15] MEDS ORDERED: NORMAL SALINE IV SCH (15:00)
[2019-01-15] MEDS ORDERED: GENTAMICIN SULFATE IV SCH (15:00)
[2019-01-15] MEDS ORDERED: cefTRIAXone IV Push 2 GM VIAL. IVP SCH (15:00)
[2019-01-15] MEDS ORDERED: MONTELUKAST SODIUM 10 MG TABLET. PO SCH (21:00)
== END 2019-01-15 14:17 | disposition home or self-care (01) | DRG 189 ==
LOC: ER 22:37 → 6 SOUTH 01-13 03:49
PROVIDERS: ADMIT Internal Medicine; ATTEND Internal Medicine
PROC: 5A09357 Assistance with Respiratory Ventilation, Less than 24 Consecutive Hours, Continuous Positive Airway Pressure (ICD-10-PCS; principal; 2019-01-14)
PROC: 5A09357 Assistance with Respiratory Ventilation, Less than 24 Consecutive Hours, Continuous Positive Airway Pressure (ICD-10-PCS; 2019-01-15)
DX: J96.01 Acute respiratory failure with hypoxia (principal); J44.0 Chronic obstructive pulmonary disease with (acute) lower respiratory infection; Z68.44 Body mass index [BMI] 60.0-69.9, adult; J44.1 Chronic obstructive pulmonary disease with (acute) exacerbation; J20.9 Acute bronchitis, unspecified; E66.01 Morbid (severe) obesity due to excess calories; F32.9 Major depressive disorder, single episode, unspecified; F41.9 Anxiety disorder, unspecified; G89.29 Other chronic pain; M79.7 Fibromyalgia; Z96.642 Presence of left artificial hip joint; I11.0 Hypertensive heart disease with heart failure; M06.9 Rheumatoid arthritis, unspecified; G62.9 Polyneuropathy, unspecified; M17.0 Bilateral primary osteoarthritis of knee; F12.10 Cannabis abuse, uncomplicated; G47.30 Sleep apnea, unspecified; F17.210 Nicotine dependence, cigarettes, uncomplicated; I50.9 Heart failure, unspecified; Z90.49 Acquired absence of other specified parts of digestive tract; Z71.6 Tobacco abuse counseling
CPT/HCPCS: 36415; 71045; 71275; 72100; 73030; 80053; 83880; 84484; 85025; 85610; 93005; 94640; 94660; 94760; 96374; 96375; 99406; J0696; J1650; J1940; J2930; J3010; J7620; Q9967; 97110; 97116; 97530; 97535; 99285-25

== ENCOUNTER 2019-04-09 21:45 | Inpatient (IN) | payer MEDICAID ==
[~2019-04-09] VITALS: Ht 160 cm; Wt 158.8 kg
[~2019-04-09 21:45] MED LIST changes: +ALBU2.5V8 INH; +AMLO10TA4 PO; +ATOR10TA PO; +CITA40TA12 PO; +LEVO500T8 PO; +LOSA100T14 PO; +MONT10TA49 PO; +TRAM1TAB4 PO
--- NOTE | 2019-04-09 22:03 | PHYS DOC ---
Past Medical History Past Medical History: Anxiety, CHF, COPD, Depression, Fibromyalgia, High Cholesterol, Hypertension Additional Past Medical Histor: obesity Past Surgical History: Cholecystectomy, , Hip Replacement, Tonsillectomy Alcohol Use: Occasionally Drug Use: Marijuana Adult General Chief Complaint Chief Complaint: CHEST PAIN HPI HPI Patient is a 58 year old [f__sex] who presents with [] Review of Systems Review of Systems Constitutional: Denies fever or chills [] Eyes: Denies change in visual acuity, redness, or eye pain [] HENT: Denies nasal congestion or sore throat [] Respiratory: Denies cough or shortness of breath [] Cardiovascular: No additional information not addressed in HPI [] GI: Denies abdominal pain, nausea, vomiting, bloody stools or diarrhea [] : Denies dysuria or hematuria [] Musculoskeletal: Denies back pain or joint pain [] Integument: Denies rash or skin lesions [] Neurologic: Denies headache, focal weakness or sensory changes [] Endocrine: Denies polyuria or polydipsia [] All other systems were reviewed and found to be within normal limits, except as documented in this note. Current Medications Current Medications Current Medications Medications (Trade) Dose Ordered Sig/Amanda Start Time Stop Time Status Last Admin Dose Admin Aspirin (Angel Luis Aspirin) 325 mg 1X ONCE 04/09/19 22:15 04/09/19 22:16 DC 04/09/19 22:20 325 MG Info (CONTRAST GIVEN -- Rx MONITORING) 1 each PRN DAILY PRN 04/10/19 00:15 04/12/19 00:14 Iohexol (Omnipaque 350 Mg/ml) 100 ml 1X ONCE 04/10/19 00:15 04/10/19 00:16 DC 04/10/19 00:21 100 ML Sodium Chloride 1,000 ml @ 1,000 mls/hr 1X ONCE 04/09/19 23:45 04/10/19 00:44 DC 04/09/19 23:50 1,000 MLS/HR Allergies Allergies Allergies Coded Allergies Type Severity Reaction Last Updated Verified No Known Drug Allergies 01/20/14 No Physical Exam Physical Exam Constitutional: Well developed, well nourished, no acute distress, non-toxic appearance. [] HENT: Normocephalic, atraumatic, bilateral external ears normal, oropharynx moist, no oral exudates, nose normal. [] Eyes: PERRLA, EOMI, conjunctiva normal, no discharge. [] Neck: Normal range of motion, no tenderness, supple, no stridor. [] Cardiovascular:Heart rate regular rhythm, no murmur [] Lungs & Thorax: Bilateral breath sounds clear to auscultation [] Abdomen: Bowel sounds normal, soft, no tenderness, no masses, no pulsatile masses. [] Skin: Warm, dry, no erythema, no rash. [] Back: No tenderness, no CVA tenderness. [] Extremities: No tenderness, no cyanosis, no clubbing, ROM intact, no edema. [] Neurologic: Alert and oriented X 3, normal motor function, normal sensory function, no focal deficits noted. [] Psychologic: Affect normal, judgement normal, mood normal. [] Current Patient Data Vital Signs Vital Signs Date Time Temp Pulse Resp B/P (MAP) Pulse Ox O2 Delivery O2 Flow Rate FiO2 04/10/19 00:31 102 20 142/102 (115) 94 Nasal Cannula 2.0 04/09/19 21:45 98.0 98.0 Lab Values Laboratory Tests Test 04/09/19 22:01 White Blood Count 6.0 x10^3/uL (4.0-11.0) Red Blood Count 4.51 x10^6/uL (3.50-5.40) Hemoglobin 13.0 g/dL (12.0-15.5) Hematocrit 39.5 % (36.0-47.0) Mean Corpuscular Volume 88 fL (79-100) Mean Corpuscular Hemoglobin 29 pg (25-35) Mean Corpuscular Hemoglobin Concent 33 g/dL (31-37) Red Cell Distribution Width 16.0 % (11.5-14.5) H Platelet Count 324 x10^3/uL (140-400) Neutrophils (%) (Auto) 62 % (31-73) Lymphocytes (%) (Auto) 25 % (24-48) Monocytes (%) (Auto) 9 % (0-9) Eosinophils (%) (Auto) 3 % (0-3) Basophils (%) (Auto) 1 % (0-3) Neutrophils # (Auto) 3.7 x10^3/uL (1.8-7.7) Lymphocytes # (Auto) 1.5 x10^3/uL (1.0-4.8) Monocytes # (Auto) 0.5 x10^3/uL (0.0-1.1) Eosinophils # (Auto) 0.2 x10^3/uL (0.0-0.7) Basophils # (Auto) 0.1 x10^3/uL (0.0-0.2) Prothrombin Time 20.0 SEC (11.7-14.0) H Prothrombin Time INR 1.7 (0.8-1.1) H Activated Partial Thromboplast Time 36 SEC (24-38) D-Dimer (Verenice) 2.35 ug/mlFEU (0.00-0.50) H Sodium Level 145 mmol/L (136-145) Potassium Level 3.4 mmol/L (3.5-5.1) L Chloride Level 107 mmol/L (98-107) Carbon Dioxide Level 28 mmol/L (21-32) Anion Gap 10 (6-14) Blood Urea Nitrogen 15 mg/dL (7-20) Creatinine 0.9 mg/dL (0.6-1.0) Estimated GFR (Cockcroft-Gault) 78.1 BUN/Creatinine Ratio 17 (6-20) Glucose Level 106 mg/dL (70-99) H Calcium Level 9.3 mg/dL (8.5-10.1) Magnesium Level 1.9 mg/dL (1.8-2.4) Total Bilirubin 0.3 mg/dL (0.2-1.0) Aspartate Amino Transferase (AST) 12 U/L (15-37) L Alanine Aminotransferase (ALT) 19 U/L (14-59) Alkaline Phosphatase 93 U/L (46-116) Creatine Kinase 51 U/L (26-192) Creatine Kinase MB (Mass) 0.7 ng/mL (0.0-3.6) Creatine Kinase MB Relative Index % (0-4) Troponin I Quantitative < 0.017 ng/mL (0.000-0.055) NC-Gjn-U-Type Natriuretic Peptide 79 pg/mL (0-124) Total Protein 7.6 g/dL (6.4-8.2) Albumin 3.2 g/dL (3.4-5.0) L Albumin/Globulin Ratio 0.7 (1.0-1.7) L Lipase 69 U/L (73-393) L Laboratory Tests 04/09/19 22:01 Laboratory Tests 04/09/19 22:01 EKG EKG @2150 Sinus tachycardia at 107bpm, NO ST elevation, compared to prior EKG per [facility] from 01/13/19 which noted NSR at 86bpm, otherwise without acute change Radiology/Procedures Radiology/Procedures PROCEDURE: CT ANGIOGRAPHY CHEST EXAM: CT ANGIOGRAPHY OF THE CHEST WITH AND WITHOUT INTRAVENOUS CONTRAST. HISTORY: Chest pain. TECHNIQUE: Computed tomographic angiography of the chest was performed before and after the intravenous administration of Isovue-370. 3-D maximum intensity projections were also performed. COMPARISON: 01/13/2019. FINDINGS: Images of the upper abdomen reveal changes of cholecystectomy. There are calcified granulomas in the spleen. Bone windows reveal no suspicious lesions. No pulmonary emboli are identified. Main pulmonary artery measures 3.6 cm. There is no aortic dissection or aneurysm. There are no pathologically enlarged mediastinal or axillary lymph nodes. Calcified mediastinal lymph nodes are likely secondary to old granulomatous disease. There is no pleural or pericardial effusion. Left ventricular hypertrophy is noted. There is focal bronchiectasis in the right upper lobe. This is unchanged. There is mild bronchial wall thickening elsewhere. There is a calcified granuloma in the right upper lobe. There is mild dependent atelectasis. IMPRESSION: 1. No pulmonary embolism. 2. Enlargement of the pulmonary arteries suggests pulmonary arterial hypertension. Left ventricular hypertrophy. 3. Focal bronchiectasis in the right upper lobe, likely postinflammatory. *One or more of the following individualized dose reduction techniques were utilized for this examination: 1. Automated exposure control. 2. Adjustment of the mA and/or kV according to patient size. 3. Use of iterative reconstruction technique. Electronically signed by: Ginger Herrera MD (04/10/2019 12:43 AM) [facility] [place] Course & Med Decision Making Course & Med Decision Making Pertinent Labs and Imaging studies reviewed. (See chart for details) [] Dragon Disclaimer Dragon Disclaimer This electronic medical record was generated, in whole or in part, using a voice recognition dictation system. Departure Departure Impression: Primary Impression: Chest pain Disposition: ADMITTED INPATIENT Admitting Physician: CELINA (Riffeantonio) Condition: STABLE Referrals: NO PCP (PCP) The HEART Score for CP Pts HEART Score for Chest Pain: HEART Score for Chest Pain Response (Comments) Value History Moderately Suspicious 1 ECG Normal 0 Age >45 - < 65 1 Risk Factors >3 Risk Factors or Hx CAD 2 Troponin < Normal Limit 0 Total 4 Risk Factors: Risk Factors: DM, Current or recent (<one month) smoker, HTN, HLP, family history of CAD, obesity. Risk Scores: Score 0 - 3: 2.5% MACE over next 6 weeks - Discharge Home Score 4 - 6: 20.3% MACE over next 6 weeks - Admit for Clinical Observation Score 7 - 10: 72.7% MACE over next 6 weeks - Early Invasive Strategies Problem Qualifiers Primary Impression: Chest pain Chest pain type: unspecified Qualified Codes: R07.9 - Chest pain, unspecified BOBBY FINN DO Apr 09, 2019 22:03
[2019-04-09 22:12] LABS: BASO # 0.1 x10^3/uL (0.0-0.2); BASO % 1 % (0-3); EOS # 0.2 x10^3/uL (0.0-0.7); EOS % 3 % (0-3); HEMATOCRIT 39.5 % (36.0-47.0); LYMPH # 1.5 x10^3/uL (1.0-4.8); LYMPH % 25 % (24-48); MEAN CORPUSCULAR HEMOGLOBIN 29 pg (25-35); MEAN CORPUSCULAR HGB CONC 33 g/dL (31-37); MEAN CORPUSCULAR VOLUME 88 fL (79-100); MONO # 0.5 x10^3/uL (0.0-1.1); MONO % 9 % (0-9); NEUT # 3.7 x10^3/uL (1.8-7.7); NEUT % 62 % (31-73); PLATELET COUNT 324 x10^3/uL (140-400); RED BLOOD COUNT 4.51 x10^6/uL (3.50-5.40)
[2019-04-09] MEDS ORDERED: ASPIRIN 325 MG TABLET PO ONE (22:15)
[2019-04-09 22:22] LABS: D-DIMER 2.35 ug/mlFEU (0.00-0.50)
[2019-04-09 22:27] LABS: CALCIUM 9.3 mg/dL (8.5-10.1); CREATININE 0.9 mg/dL (0.6-1.0); GFR 78.1; POTASSIUM 3.4 mmol/L (3.5-5.1)
[2019-04-09 22:33] LABS: ALBUMIN 3.2 g/dL (3.4-5.0); ALBUMIN/GLOBULIN RATIO 0.7 (1.0-1.7); MAGNESIUM 1.9 mg/dL (1.8-2.4); TOTAL BILIRUBIN 0.3 mg/dL (0.2-1.0); TOTAL PROTEIN 7.6 g/dL (6.4-8.2)
[2019-04-09 22:37] LABS: CREATINE KINASE 51 U/L (26-192)
[2019-04-09] MEDS ORDERED: IV NORMAL SALINE 1000ML BAG 1,000 ML IV ONE (23:45)
[2019-04-10] VITALS (7 sets, daily range): BP systolic 124–163; BP diastolic 75–103
[2019-04-10] MEDS ORDERED: IOHEXOL 350 MG/ML 100 ML VIAL. IV ONE (00:15)
[2019-04-10] MEDS ORDERED: CONTRAST GIVEN. MC PRN (00:15)
--- NOTE | 2019-04-10 00:46 | RAD ---
EXAM: CT ANGIOGRAPHY OF THE CHEST WITH AND WITHOUT INTRAVENOUS CONTRAST. HISTORY: Chest pain. TECHNIQUE: Computed tomographic angiography of the chest was performed before and after the intravenous administration of Isovue-370. 3-D maximum intensity projections were also performed. COMPARISON: 01/13/2019. FINDINGS: Images of the upper abdomen reveal changes of cholecystectomy. There are calcified granulomas in the spleen. Bone windows reveal no suspicious lesions. No pulmonary emboli are identified. Main pulmonary artery measures 3.6 cm. There is no aortic dissection or aneurysm. There are no pathologically enlarged mediastinal or axillary lymph nodes. Calcified mediastinal lymph nodes are likely secondary to old granulomatous disease. There is no pleural or pericardial effusion. Left ventricular hypertrophy is noted. There is focal bronchiectasis in the right upper lobe. This is unchanged. There is mild bronchial wall thickening elsewhere. There is a calcified granuloma in the right upper lobe. There is mild dependent atelectasis. IMPRESSION: 1. No pulmonary embolism. 2. Enlargement of the pulmonary arteries suggests pulmonary arterial hypertension. Left ventricular hypertrophy. 3. Focal bronchiectasis in the right upper lobe, likely postinflammatory. *One or more of the following individualized dose reduction techniques were utilized for this examination: 1. Automated exposure control. 2. Adjustment of the mA and/or kV according to patient size. 3. Use of iterative reconstruction technique. Electronically signed by: Ginger Herrera MD (04/10/2019 12:43 AM) [facility] [place]
[2019-04-10] MEDS ORDERED: ONDANSETRON PF 4 MG/2 ML VIAL. IV PRN (01:00)
[2019-04-10] MEDS: fentaNYL PF VIAL 100 MCG/2 ML VIAL IV PRN ×2 (03:57→15:23)
--- NOTE | 2019-04-10 07:09 | EKG ---
[facility] [address] [place] [address] Test Date: 2019-04-09 Test Time: 21:50:07 Pat Name: BRYANNA CHACKO Department: Room: Gender: F [employer] Secretary: : 1960 Requested By: BOBBY FINN Order Number: [id number] Reading MD: Measurements Intervals [place] Rate: 107 P: 34 WV: 158 QRS: 6 QRSD: 84 T: 34 QT: 374 QTc: 505 Interpretive Statements SINUS TACHYCARDIA ATRIAL PREMATURE COMPLEX(ES) QRS(T) CONTOUR ABNORMALITY CONSIDER ANTEROSEPTAL MYOCARDIAL DAMAGE POSSIBLY ABNORMAL ECG RI6.01 No previous ECG available for comparison
--- NOTE | 2019-04-10 08:49 | PDOC1 ---
History and Physical Date of Admission Date of Admission DATE: 04/10/19 TIME: 08:46 Identification/Chief Complaint Chief Complaint Chest pain, shortness of breath Source Source: Patient History of Present Illness History of Present Illness Ms Driscoll is a 58yo F w/ PMHx smoker, Anxiety, CHF, COPD, Depression, Fibromyalgia, High Cholesterol, Hypertension, morbid obesity who presents to ED c/o chest pain and shortness of breath. She states she was just discharged from [facility] right after being discharged from here. She continues to fall asleep during patient interview, but is able to tell me she just moved from [place] last June 2018 and is struggling with housing instability (homelessness) currently and has not filled her medications she was given at [facility]. In ED there had been concern for acute PE, CTPA was negative. Troponins negative x2. EKG sinus tachy without ST segmental changes. Potassium low at 3.4. INR 1.7. Past Medical History Cardiovascular: CHF, HTN Hepatobiliary: No pertinent hx Psych: No pertinent hx Rheumatologic: Fibromyalgia, Rheumatoid arthritis Past Surgical History Past Surgical History: Cholecystectomy, , Total hip replacement, Tonsillectomy Social History Smoke: 1 pack per day ALCOHOL: none Drugs: Marijuana Current Problem List Problem List Problems Medical Problems: (1) Chest pain Status: Acute Current Medications Current Medications Current Medications Aspirin (Angel Luis Aspirin) 325 mg 1X ONCE PO Last administered on 04/09/19at 22:20; Start 04/09/19 at 22:15; Stop 04/09/19 at 22:16; Status DC Sodium Chloride 1,000 ml @ 1,000 mls/hr 1X ONCE IV Last administered on 04/09/19at 23:50; Start 04/09/19 at 23:45; Stop 04/10/19 at 00:44; Status DC Iohexol (Omnipaque 350 Mg/ml) 100 ml 1X ONCE IV Last administered on 04/10/19at 00:21; Start 04/10/19 at 00:15; Stop 04/10/19 at 00:16; Status DC Info (CONTRAST GIVEN -- Rx MONITORING) 1 each PRN DAILY PRN MC SEE COMMENTS; Start 04/10/19 at 00:15; Stop 04/12/19 at 00:14 Ondansetron HCl (Zofran) 4 mg PRN Q8HRS PRN IV NAUSEA/VOMITING; Start 04/10/19 at 01:00; Stop 04/11/19 at 00:59 Fentanyl Citrate (Fentanyl 2ml Vial) 50 mcg PRN Q2HR PRN IV PAIN Last administ ered on 04/10/19at 03:57; Start 04/10/19 at 01:00 Active Scripts Active Tramadol-Acetaminophn 37.5-325 (Tramadol Hcl/Acetaminophen) 1 Each Tablet 1 Tab PO TID Levofloxacin 500 Mg Tablet 1 Tab PO DAILY Hydrocodone-Apap 5-325 (Hydrocodone Bit/Acetaminophen) 1 Each Tablet 1 Tab PO PRN Q6HRS PRN 4 Days Reported Proair Hfa Inhaler (Albuterol Sulfate) 8.5 Gm Hfa.aer.ad 1 Puff INH PRN Q6HRS PRN Montelukast Sodium Tablet (Montelukast Sodium) 10 Mg Tablet 10 Mg PO HS Lipitor (Atorvastatin Calcium) 10 Mg Tablet 1 Tab PO DAILY Norvasc (Amlodipine Besylate) 10 Mg Tablet 10 Mg PO DAILY Losartan Potassium 100 Mg Tablet 100 Mg PO DAILY Celexa (Citalopram Hydrobromide) 40 Mg Tablet 1 Tab PO DAILY Haldol Decanoate 100 (Haloperidol Decanoate) 100 Mg/1 Ml Ampul 100 Mg IM Acid Program Manager Environmental Planning (Famotidine) 20 Mg Tablet 20 Mg PO Allergies Allergies: Coded Allergies: No Known Drug Allergies (Unverified , 01/20/14) ROS General: YES: Fatigue, Malaise; No: Chills, Night Sweats, Appetite, Other PSYCHOLOGICAL ROS: YES: Anxiety, Behavioral Disorder, Concentration difficultie , Disorientation; No: Decreased libido, Depression, Hallucinations, Hostility, Irritablity, Memory difficulties, Mood Swings, Obsessive thoughts, Physical abuse, Sexual abuse, Sleep disturbances, Suicidal ideation, Other Eyes: No Blurry vision, No Decreased vision, No Double vision, No Dry eyes, No Excessive tearing, No Eye Pain, No Itchy Eyes, No Loss of vision, No Photophobia, No Scotomata, No Uses contacts, No Uses glasses, No Other HEENT: No: Heacaches, Visual Changes, Hearing change, Nasal congestion, Nasal discharge, Oral lesions, Sinus pain, Sore Throat, Epistaxis, Sneezing, Snoring, Tinnitus, Vertigo, Vocal changes, Other ALLERGY AND IMMUNOLOGY: No: Hives, Insect Bite Sensitivity, Itchy/Watery Eyes, Nasal Congestion, Post Nasal Drip, Seasonal Allergies, Other Hematological and Lymphatic: No: Bleeding Problems, Blood Clots, Blood Transfusions, Brusing, Night Sweats, Pallor, Swollen Lymph Nodes, Other ENDOCRINE: No: Breast Changes, Galactorrhea, Hair Pattern Changes, Hot Flashes, Malaise/lethargy, Mood Swings, Palpitations, Polydipsia/polyuria, Skin Changes, Temperature Intolerance, Unexpected Weight Changes, Other Breast: No New/Changing Breast Lumps, No Nipple changes, No Nipple discharge, No Other Respiratory: YES: Shortness of breath, SOB with excertion, Tachypnea, Wheezing; No: Cough, Hemoptysis, Orthopnea, Pleuritic Pain, Sputum Changes, Stridor, Other Cardiovascular: yes Chest Pain; No Palpitations, No Orthopnea, No Paroxysmal Noc. Dyspnea, No Edema, No Lt Headedness, No Other Gastrointestinal: Yes Nausea; No Vomiting, No Abdominal Pain, No Diarrhea, No Constipation, No Melena, No Hematochezia, No Other Genitourinary: No Dysuria, No Frequency, No Incontinence, No Hematuria, No Retention, No Discharge, No Urgency, No Pain, No Flank Pain, No Other, No , No , No , No , No , No , No Musculoskeletal: No Gait Disturbance, No Joint Pain, No Joint Stiffness, No Joint Swelling, No Muscle Pain, No Muscular Weakness, No Pain In:, No Swelling In:, No Other Neurological: Yes Confusion; No Behavorial Changes, No Bowel/Bladder ControlChng, No Dizziness, No Gait Disturbance, No Headaches, No Impaired Coord/balance, No Memory Loss, No Numbness/Tingling, No Seizures, No Speech Problems, No Tremors, No Visual Changes, No Weakness, No Other Skin: No Dry Skin, No Eczema, No Hair Changes, No Lumps, No Mole Changes, No Mottling, No Nail Changes, No Pruritus, No Rash, No Skin Lesion Changes, No Other, No Acne Physical Exam General: Cooperative, mild distress HEENT: Atraumatic, PERRLA, EOMI, Mucous membr. moist/pink Lungs: Other (scattered wheezing) Heart: S1S2, RRR, no gallops (2/6 diastolic murmur) Abdomen: Normal bowel sounds, Soft, No tenderness, No hepatosplenomegaly, No masses Rectal Exam: not examined Extremities: No clubbing, No cyanosis, No edema, Normal pulses, No tenderness/swelling Skin: No rashes, No breakdown, No significant lesion Neuro: Normal gait, Normal speech, Strength at 5/5 X4 ext, Normal tone, Sensation intact, Cranial nerves 3-12 NL, Reflexes 2+ Psych/Mental Status: Other (Very drowsy) Vitals Vitals Vital Signs Date Time Temp Pulse Resp B/P (MAP) Pulse Ox O2 Delivery O2 Flow Rate FiO2 04/10/19 07:00 97.4 100 134/92 (106) 92 Nasal Cannula 2.0 97.4 04/10/19 03:57 20 Labs Labs Laboratory Tests Test 04/09/19 22:01 04/10/19 07:00 White Blood Count 6.0 x10^3/uL (4.0-11.0) Red Blood Count 4.51 x10^6/uL (3.50-5.40) Hemoglobin 13.0 g/dL (12.0-15.5) Hematocrit 39.5 % (36.0-47.0) Mean Corpuscular Volume 88 fL (79-100) Mean Corpuscular Hemoglobin 29 pg (25-35) Mean Corpuscular Hemoglobin Concent 33 g/dL (31-37) Red Cell Distribution Width 16.0 % (11.5-14.5) Platelet Count 324 x10^3/uL (140-400) Neutrophils (%) (Auto) 62 % (31-73) Lymphocytes (%) (Auto) 25 % (24-48) Monocytes (%) (Auto) 9 % (0-9) Eosinophils (%) (Auto) 3 % (0-3) Basophils (%) (Auto) 1 % (0-3) Neutrophils # (Auto) 3.7 x10^3/uL (1.8-7.7) Lymphocytes # (Auto) 1.5 x10^3/uL (1.0-4.8) Monocytes # (Auto) 0.5 x10^3/uL (0.0-1.1) Eosinophils # (Auto) 0.2 x10^3/uL (0.0-0.7) Basophils # (Auto) 0.1 x10^3/uL (0.0-0.2) Prothrombin Time 20.0 SEC (11.7-14.0) Prothromb Time International Ratio 1.7 (0.8-1.1) Activated Partial Thromboplast Time 36 SEC (24-38) D-Dimer (Verenice) 2.35 ug/mlFEU (0.00-0.50) Sodium Level 145 mmol/L (136-145) Potassium Level 3.4 mmol/L (3.5-5.1) Chloride Level 107 mmol/L (98-107) Carbon Dioxide Level 28 mmol/L (21-32) Anion Gap 10 (6-14) Blood Urea Nitrogen 15 mg/dL (7-20) Creatinine 0.9 mg/dL (0.6-1.0) Estimated GFR (Cockcroft-Gault) 78.1 BUN/Creatinine Ratio 17 (6-20) Glucose Level 106 mg/dL (70-99) Calcium Level 9.3 mg/dL (8.5-10.1) Magnesium Level 1.9 mg/dL (1.8-2.4) Total Bilirubin 0.3 mg/dL (0.2-1.0) Aspartate Amino Transf (AST/SGOT) 12 U/L (15-37) Alanine Aminotransferase (ALT/SGPT) 19 U/L (14-59) Alkaline Phosphatase 93 U/L (46-116) Creatine Kinase 51 U/L (26-192) Creatine Kinase MB (Mass) 0.7 ng/mL (0.0-3.6) Creatine Kinase MB Relative Index % (0-4) Troponin I Quantitative < 0.017 ng/mL (0.000-0.055) < 0.017 ng/mL (0.000-0.055) OY-Pbl-E-Type Natriuretic Peptide 79 pg/mL (0-124) Total Protein 7.6 g/dL (6.4-8.2) Albumin 3.2 g/dL (3.4-5.0) Albumin/Globulin Ratio 0.7 (1.0-1.7) Lipase 69 U/L (73-393) Laboratory Tests Test 04/09/19 22:01 04/10/19 07:00 White Blood Count 6.0 x10^3/uL (4.0-11.0) Red Blood Count 4.51 x10^6/uL (3.50-5.40) Hemoglobin 13.0 g/dL (12.0-15.5) Hematocrit 39.5 % (36.0-47.0) Mean Corpuscular Volume 88 fL (79-100) Mean Corpuscular Hemoglobin 29 pg (25-35) Mean Corpuscular Hemoglobin Concent 33 g/dL (31-37) Red Cell Distribution Width 16.0 % (11.5-14.5) Platelet Count 324 x10^3/uL (140-400) Neutrophils (%) (Auto) 62 % (31-73) Lymphocytes (%) (Auto) 25 % (24-48) Monocytes (%) (Auto) 9 % (0-9) Eosinophils (%) (Auto) 3 % (0-3) Basophils (%) (Auto) 1 % (0-3) Neutrophils # (Auto) 3.7 x10^3/uL (1.8-7.7) Lymphocytes # (Auto) 1.5 x10^3/uL (1.0-4.8) Monocytes # (Auto) 0.5 x10^3/uL (0.0-1.1) Eosinophils # (Auto) 0.2 x10^3/uL (0.0-0.7) Basophils # (Auto) 0.1 x10^3/uL (0.0-0.2) Prothrombin Time 20.0 SEC (11.7-14.0) Prothromb Time International Ratio 1.7 (0.8-1.1) Activated Partial Thromboplast Time 36 SEC (24-38) D-Dimer (Verenice) 2.35 ug/mlFEU (0.00-0.50) Sodium Level 145 mmol/L (136-145) Potassium Level 3.4 mmol/L (3.5-5.1) Chloride Level 107 mmol/L (98-107) Carbon Dioxide Level 28 mmol/L (21-32) Anion Gap 10 (6-14) Blood Urea Nitrogen 15 mg/dL (7-20) Creatinine 0.9 mg/dL (0.6-1.0) Estimated GFR (Cockcroft-Gault) 78.1 BUN/Creatinine Ratio 17 (6-20) Glucose Level 106 mg/dL (70-99) Calcium Level 9.3 mg/dL (8.5-10.1) Magnesium Level 1.9 mg/dL (1.8-2.4) Total Bilirubin 0.3 mg/dL (0.2-1.0) Aspartate Amino Transf (AST/SGOT) 12 U/L (15-37) Alanine Aminotransferase (ALT/SGPT) 19 U/L (14-59) Alkaline Phosphatase 93 U/L (46-116) Creatine Kinase 51 U/L (26-192) Creatine Kinase MB (Mass) 0.7 ng/mL (0.0-3.6) Creatine Kinase MB Relative Index % (0-4) Troponin I Quantitative < 0.017 ng/mL (0.000-0.055) < 0.017 ng/mL (0.000-0.055) KF-Vvd-C-Type Natriuretic Peptide 79 pg/mL (0-124) Total Protein 7.6 g/dL (6.4-8.2) Albumin 3.2 g/dL (3.4-5.0) Albumin/Globulin Ratio 0.7 (1.0-1.7) Lipase 69 U/L (73-393) Images Images CTPA - 1. No pulmonary embolism. 2. Enlargement of the pulmonary arteries suggests pulmonary arterial hypertension. Left ventricular hypertrophy. 3. Focal bronchiectasis in the right upper lobe, likely postinflammatory. VTE Prophylaxis Ordered VTE Prophylaxis Devices: No VTE Pharmacological Prophylaxi: Yes Assessment/Plan Assessment/Plan A/P: Chest pain - ruling out STEMI, trop x2 and EKG negative. Could be 2/2 respiratory failure Shortness of breath - hypoxic respiratory failure, negative for PE. She appears to have signs of pulm HTN on CT. Will obtain echo. ABG now. Consult pulm Acute encephalopathy - likely from hypercapnea, will obtain ABG Anxiety with depression - will cont meds ?CHF - BNP is negative, however she definitely is exhibiting clinical right sided failure COPD - visible on her imaging studies, no available PFTs. Seen by pulmonology previously. She appears to have element of restrictive disease from her morbid obesity Fibromyalgia - cont meds High Cholesterol - cont statin Hypertension - cont meds Morbid obesity - counseled on weight loss, likely has OHS Homelessness - Pt lives in her car Obstructive sleep apnea - intermittently compliant with CPAP. FEN - Cardiac diet PPX - INR 1.7, will assess what she is on, needs full med rec FULL CODE Inpatient for acute hypoxia DAREN ROSALES MD Apr 10, 2019 08:49
[2019-04-10] MEDS ORDERED: ALBUTEROL SULFATE 2.5 MG/3 ML NEBU. INH PRN (09:30)
[2019-04-10 11:02] LABS: BASE EXCESS ABG 2 mmol/L (-3-3); HCO3 ABG 27 mmol/L (21-28); PCO2 ABG 46 mmHg (35-46); SAT O2 ABG 79 % (92-99)
[2019-04-10 11:07] LABS: PO2 ABG 43 mmHg (75-108)
[2019-04-10] MEDS: LOSARTAN POTASSIUM 50 MG TABLET. PO SCH (11:36)
[2019-04-10] MEDS: CITALOPRAM 20 MG TABLET. PO SCH (11:36)
--- NOTE | 2019-04-10 12:47 | NUR ---
SS following for discharge planning. SS reviewed pt chart. Pt is from home and is currently requiring oxygen. No discharge needs noted at this time. SS will continue to follow for discharge planning.
--- NOTE | 2019-04-10 13:10 | CONS ---
DATE OF CONSULTATION: 04/10/2019 PULMONARY CONSULTATION ATTENDING PHYSICIAN: Dr. Newberry. REASON FOR CONSULTATION: Dyspnea, respiratory failure. HISTORY OF PRESENT ILLNESS: The patient is a 58-year-old morbidly obese patient with a BMI of 57. She has history of tobacco use for 30 years and underlying chronic obstructive pulmonary disease. She has had sleep apnea for which she has been on CPAP in the past. However, the patient's social situation has been very dismal. She does not have a home, she is homeless and lives in a car. She was brought into the hospital complaining of chest pain. She had some shortness of breath and wheezing as well. She has a cough, which has been nonproductive, no fever, no chills. The patient states that there was no air conditioner in her car and it has been pretty hot outside. She underwent imaging study, which was reviewed by me. The CT angiogram did not show any evidence of pulmonary embolism. There was enlargement of pulmonary arteries suggesting pulmonary arterial hypertension. Focal bronchiectasis in the right upper lobe seen. Currently, she is on oxygen at 2 liters. PAST MEDICAL HISTORY: Significant for history of COPD, history of morbid obesity, history of obstructive sleep apnea, fibromyalgia, and rheumatoid arthritis. PAST SURGICAL HISTORY: Cholecystectomy, , total hip replacement, and tonsillectomy. SOCIAL HISTORY: Smoker 1 pack per day, smoked for about 30 years, quit 5 years ago. History of marijuana use. ALLERGIES: None. MEDICATIONS: Reviewed as listed in the MRAD. REVIEW OF SYSTEMS: Twelve-point system obtained. Pertinent positives discussed in my history of present illness, otherwise noncontributory. All systems that were negative were reviewed as well. PHYSICAL EXAMINATION: VITAL SIGNS: Reviewed. Pulse ox 92% on 3 liters. NECK: Supple. LUNGS: With occasional wheezing. CARDIOVASCULAR: Regular rate and rhythm. ABDOMEN: Soft, obese. EXTREMITIES: With no pitting edema. LABORATORY DATA: Reviewed. White cell count 6.0, hemoglobin 13.0. ABGs with a pH of 7.40, pCO2 of 46 and a pO2 of 43. Chemistries with a BUN and creatinine of 15 and 0.9. IMPRESSION: 1. Acute hypoxic respiratory failure secondary to acute exacerbation of chronic obstructive pulmonary disease. 2. Acute bronchitis. 3. Chest pain with no evidence of pulmonary embolism. Consider Cardiology evaluation. 4. Underlying obstructive sleep apnea with unable to use CPAP as she has been living in her car and has poor social help. RECOMMENDATIONS: 1. Continue with present oxygen, keep saturations 92% and above. 2. DuoNebs. 3. Low dose steroids. 4. Weight loss is strongly advised. 5. web services manager consult. 6. Home CPAP when she is able to find her a home. 7. No need for antibiotics at present. 8. Her pulmonary hypertension seen on CT chest is likely related to her chronic obstructive pulmonary disease and underlying obstructive sleep apnea. 9. We will follow along with you, possible discharge in 24 hours. MIRIAM WORLEY MD DR: OLENA/wilian JOB#: [id number] / [id number]
--- NOTE | 2019-04-10 15:22 | PDOC2 ---
CONSULT Date of Consult Date of Consult DATE: 04/10/19 TIME: 15:17 Reason for Consult Reason for Consult: Chest pain and shortness of breath Referring Physician Referring Physician: Dr. Newberry Identification/Chief Complaint Chief Complaint Chest pain and shortness of breath Source Source: Chart review, Patient History of Present Illness Reason for Visit: 58-year-old female was recently discharged from [facility] presented complaining of shortness of breath and intermittent episodes of retrosternal chest pain that she described as tightness not related to exertion or food intake. She denied any orthopnea/PND, palpitations or syncope. She apparently has not filled her medications [place] [facility] Past Medical History Cardiovascular: CHF, HTN Hepatobiliary: No pertinent hx Psych: No pertinent hx Rheumatologic: Fibromyalgia, Rheumatoid arthritis Past Surgical History Past Surgical History: Cholecystectomy, , Total hip replacement, Tonsillectomy Social History 1 pack per day ALCOHOL: none Drugs: Marijuana Current Problem List Problem List Problems Medical Problems: (1) Chest pain Status: Acute Current Medications Current Medications Current Medications Aspirin (Angel Luis Aspirin) 325 mg 1X ONCE PO Last administered on 04/09/19at 22:20; Start 04/09/19 at 22:15; Stop 04/09/19 at 22:16; Status DC Sodium Chloride 1,000 ml @ 1,000 mls/hr 1X ONCE IV Last administered on 04/09/19at 23:50; Start 04/09/19 at 23:45; Stop 04/10/19 at 00:44; Status DC Iohexol (Omnipaque 350 Mg/ml) 100 ml 1X ONCE IV Last administered on 04/10/19at 00:21; Start 04/10/19 at 00:15; Stop 04/10/19 at 00:16; Status DC Info (CONTRAST GIVEN -- Rx MONITORING) 1 each PRN DAILY PRN MC SEE COMMENTS; Start 04/10/19 at 00:15; Stop 04/12/19 at 00:14 Ondansetron HCl (Zofran) 4 mg PRN Q8HRS PRN IV NAUSEA/VOMITING; Start 04/10/19 at 01:00; Stop 04/11/19 at 00:59 Fentanyl Citrate (Fentanyl 2ml Vial) 50 mcg PRN Q2HR PRN IV PAIN Last administered on 04/10/19at 03:57; Start 04/10/19 at 01:00 Albuterol Sulfate (Ventolin Neb Soln) 2.5 mg PRN Q6HRS PRN INH SHORTNESS OF BREATH; Start 04/10/19 at 09:30 Amlodipine Besylate (Norvasc) 10 mg DAILY PO ; Start 04/11/19 at 09:00 Atorvastatin Calcium (Lipitor) 10 mg DAILY PO ; Start 04/11/19 at 09:00 Famotidine (Pepcid) 20 mg DAILY PO ; Start 04/11/19 at 09:00 Montelukast Sodium (Singulair) 10 mg HS PO ; Start 04/10/19 at 21:00 Citalopram Hydrobromide (CeleXA) 40 mg DAILY PO Last administered on 04/10/19at 11:37; Start 04/10/19 at 10:00 Losartan Potassium (Cozaar) 100 mg DAILY PO Last administered on 04/10/19at 11:37; Start 04/10/19 at 10:00 Active Scripts Active Tramadol-Acetaminophn 37.5-325 (Tramadol Hcl/Acetaminophen) 1 Each Tablet 1 Tab PO TID Levofloxacin 500 Mg Tablet 1 Tab PO DAILY Hydrocodone-Apap 5-325 (Hydrocodone Bit/Acetaminophen) 1 Each Tablet 1 Tab PO PRN Q6HRS PRN 4 Days Reported Proair Hfa Inhaler (Albuterol Sulfate) 8.5 Gm Hfa.aer.ad 1 Puff INH PRN Q6HRS PRN Montelukast Sodium Tablet (Montelukast Sodium) 10 Mg Tablet 10 Mg PO HS Lipitor (Atorvastatin Calcium) 10 Mg Tablet 1 Tab PO DAILY Norvasc (Amlodipine Besylate) 10 Mg Tablet 10 Mg PO DAILY Losartan Potassium 100 Mg Tablet 100 Mg PO DAILY Celexa (Citalopram Hydrobromide) 40 Mg Tablet 1 Tab PO DAILY Haldol Decanoate 100 (Haloperidol Decanoate) 100 Mg/1 Ml Ampul 100 Mg IM Acid Laboratory Miller (Famotidine) 20 Mg Tablet 20 Mg PO Allergies Allergies: Coded Allergies: No Known Drug Allergies (Unverified , 01/20/14) ROS PSYCHOLOGICAL ROS: No: Hallucinations Eyes: No Loss of vision HEENT: No: Epistaxis Respiratory: YES: Shortness of breath; No: Hemoptysis Cardiovascular: yes Chest Pain Gastrointestinal: No Vomiting, No Diarrhea Genitourinary: No Hematuria Neurological: No Seizures Skin: No Rash Physical Exam General: Alert, Oriented X3 HEENT: Atraumatic, PERRLA Lungs: Other (scattered crepitation bilaterally) Heart: Regular rate Abdomen: Soft Extremities: No edema Psych/Mental Status: Mood NL Vitals VITALS Vital Signs Date Time Temp Pulse Resp B/P (MAP) Pulse Ox O2 Delivery O2 Flow Rate FiO2 04/10/19 11:37 95 145/97 04/10/19 10:40 98.1 18 92 Nasal Cannula 3.0 98.1 Labs Labs Laboratory Tests Test 04/09/19 22:01 04/10/19 07:00 04/10/19 10:57 White Blood Count 6.0 x10^3/uL (4.0-11.0) Red Blood Count 4.51 x10^6/uL (3.50-5.40) Hemoglobin 13.0 g/dL (12.0-15.5) Hematocrit 39.5 % (36.0-47.0) Mean Corpuscular Volume 88 fL (79-100) Mean Corpuscular Hemoglobin 29 pg (25-35) Mean Corpuscular Hemoglobin Concent 33 g/dL (31-37) Red Cell Distribution Width 16.0 % (11.5-14.5) Platelet Count 324 x10^3/uL (140-400) Neutrophils (%) (Auto) 62 % (31-73) Lymphocytes (%) (Auto) 25 % (24-48) Monocytes (%) (Auto) 9 % (0-9) Eosinophils (%) (Auto) 3 % (0-3) Basophils (%) (Auto) 1 % (0-3) Neutrophils # (Auto) 3.7 x10^3/uL (1.8-7.7) Lymphocytes # (Auto) 1.5 x10^3/uL (1.0-4.8) Monocytes # (Auto) 0.5 x10^3/uL (0.0-1.1) Eosinophils # (Auto) 0.2 x10^3/uL (0.0-0.7) Basophils # (Auto) 0.1 x10^3/uL (0.0-0.2) Prothrombin Time 20.0 SEC (11.7-14.0) Prothromb Time International Ratio 1.7 (0.8-1.1) Activated Partial Thromboplast Time 36 SEC (24-38) D-Dimer (Verenice) 2.35 ug/mlFEU (0.00-0.50) Sodium Level 145 mmol/L (136-145) Potassium Level 3.4 mmol/L (3.5-5.1) Chloride Level 107 mmol/L (98-107) Carbon Dioxide Level 28 mmol/L (21-32) Anion Gap 10 (6-14) Blood Urea Nitrogen 15 mg/dL (7-20) Creatinine 0.9 mg/dL (0.6-1.0) Estimated GFR (Cockcroft-Gault) 78.1 BUN/Creatinine Ratio 17 (6-20) Glucose Level 106 mg/dL (70-99) Calcium Level 9.3 mg/dL (8.5-10.1) Magnesium Level 1.9 mg/dL (1.8-2.4) Total Bilirubin 0.3 mg/dL (0.2-1.0) Aspartate Amino Transf (AST/SGOT) 12 U/L (15-37) Alanine Aminotransferase (ALT/SGPT) 19 U/L (14-59) Alkaline Phosphatase 93 U/L (46-116) Creatine Kinase 51 U/L (26-192) Creatine Kinase MB (Mass) 0.7 ng/mL (0.0-3.6) Creatine Kinase MB Relative Index % (0-4) Troponin I Quantitative < 0.017 ng/mL (0.000-0.055) < 0.017 ng/mL (0.000-0.055) EF-Kdh-V-Type Natriuretic Peptide 79 pg/mL (0-124) Total Protein 7.6 g/dL (6.4-8.2) Albumin 3.2 g/dL (3.4-5.0) Albumin/Globulin Ratio 0.7 (1.0-1.7) Lipase 69 U/L (73-393) O2 Saturation 79 % (92-99) Arterial Blood pH 7.40 (7.35-7.45) Arterial Blood pCO2 at Patient Temp 46 mmHg (35-46) Arterial Blood pO2 at Patient Temp 43 mmHg (75-108) Arterial Blood HCO3 27 mmol/L (21-28) Arterial Blood Base Excess 2 mmol/L (-3-3) Laboratory Tests Test 8/8/19 22:01 04/10/19 07:00 04/10/19 10:57 White Blood Count 6.0 x10^3/uL (4.0-11.0) Red Blood Count 4.51 x10^6/uL (3.50-5.40) Hemoglobin 13.0 g/dL (12.0-15.5) Hematocrit 39.5 % (36.0-47.0) Mean Corpuscular Volume 88 fL (79-100) Mean Corpuscular Hemoglobin 29 pg (25-35) Mean Corpuscular Hemoglobin Concent 33 g/dL (31-37) Red Cell Distribution Width 16.0 % (11.5-14.5) Platelet Count 324 x10^3/uL (140-400) Neutrophils (%) (Auto) 62 % (31-73) Lymphocytes (%) (Auto) 25 % (24-48) Monocytes (%) (Auto) 9 % (0-9) Eosinophils (%) (Auto) 3 % (0-3) Basophils (%) (Auto) 1 % (0-3) Neutrophils # (Auto) 3.7 x10^3/uL (1.8-7.7) Lymphocytes # (Auto) 1.5 x10^3/uL (1.0-4.8) Monocytes # (Auto) 0.5 x10^3/uL (0.0-1.1) Eosinophils # (Auto) 0.2 x10^3/uL (0.0-0.7) Basophils # (Auto) 0.1 x10^3/uL (0.0-0.2) Prothrombin Time 20.0 SEC (11.7-14.0) Prothromb Time International Ratio 1.7 (0.8-1.1) Activated Partial Thromboplast Time 36 SEC (24-38) D-Dimer (Verenice) 2.35 ug/mlFEU (0.00-0.50) Sodium Level 145 mmol/L (136-145) Potassium Level 3.4 mmol/L (3.5-5.1) Chloride Level 107 mmol/L (98-107) Carbon Dioxide Level 28 mmol/L (21-32) Anion Gap 10 (6-14) Blood Urea Nitrogen 15 mg/dL (7-20) Creatinine 0.9 mg/dL (0.6-1.0) Estimated GFR (Cockcroft-Gault) 78.1 BUN/Creatinine Ratio 17 (6-20) Glucose Level 106 mg/dL (70-99) Calcium Level 9.3 mg/dL (8.5-10.1) Magnesium Level 1.9 mg/dL (1.8-2.4) Total Bilirubin 0.3 mg/dL (0.2-1.0) Aspartate Amino Transf (AST/SGOT) 12 U/L (15-37) Alanine Aminotransferase (ALT/SGPT) 19 U/L (14-59) Alkaline Phosphatase 93 U/L (46-116) Creatine Kinase 51 U/L (26-192) Creatine Kinase MB (Mass) 0.7 ng/mL (0.0-3.6) Creatine Kinase MB Relative Index % (0-4) Troponin I Quantitative < 0.017 ng/mL (0.000-0.055) < 0.017 ng/mL (0.000-0.055) ET-Dph-E-Type Natriuretic Peptide 79 pg/mL (0-124) Total Protein 7.6 g/dL (6.4-8.2) Albumin 3.2 g/dL (3.4-5.0) Albumin/Globulin Ratio 0.7 (1.0-1.7) Lipase 69 U/L (73-393) O2 Saturation 79 % (92-99) Arterial Blood pH 7.40 (7.35-7.45) Arterial Blood pCO2 at Patient Temp 46 mmHg (35-46) Arterial Blood pO2 at Patient Temp 43 mmHg (75-108) Arterial Blood HCO3 27 mmol/L (21-28) Arterial Blood Base Excess 2 mmol/L (-3-3) Assessment/Plan Assessment/Plan 1. Acute hypoxic respiratory failure most probably secondary to acute COPD exacerbation. Patient has history of chronic diastolic heart failure but her BNP level is normal and chest x-ray did not show any increased pulmonary vascularity. CT scan of the chest negative for PE. Continue current treatment per pulmonary team. We will obtain records [place] [facility] [place] recent cardiac workup. 2. Chest pain with atypical features. Myocardial infarction has been ruled out. Chest pain could be secondary to bronchospasm. We will consider ischemic evaluation as an outpatient. 3. Hypertension: Mildly labile. Continue current medical regimen. 4. Hyperlipidemia: Continue statin therapy Thank you for your consultation MARTHA PADGETT MD Apr 10, 2019 15:22
[2019-04-10] MEDS: QUEtiapine 25 MG TABLET. PO SCH (20:13)
[2019-04-10] MEDS: MONTELUKAST SODIUM 10 MG TABLET. PO SCH (21:20)
[2019-04-10] MEDS: ACETAMINOPHEN 325 MG TABLET. PO PRN (21:20)
[2019-04-10] MEDS: NYSTATIN 100,000 UNITS/ML 5 ML ORAL.SUSP. SWSW SCH (21:20)
[2019-04-10] MEDS: METOPROLOL TART IMMED RELEASE 25 MG TABLET. PO SCH (21:21)
[2019-04-11 03:00] VITALS: BP 147/107
[2019-04-11] MEDS: ACETAMINOPHEN 325 MG TABLET. PO PRN (04:01)
[2019-04-11 06:53] LABS: CHOLESTEROL/HDL RATIO 3.2
[2019-04-11 07:00] VITALS: BP 150/79
--- NOTE | 2019-04-11 07:35 | PDOC ---
PULMONARY PROGRESS NOTES Subjective on 02, has sob, cough, no pain, not on home 02 Vitals Vital Signs Date Time Temp Pulse Resp B/P (MAP) Pulse Ox O2 Delivery O2 Flow Rate FiO2 04/11/19 06:33 96 Nasal Cannula 2.0 04/11/19 03:00 98.1 84 22 147/107 (120) 98.1 General: Alert, No acute distress HEENT: Other (nc at perrl) Lungs: Wheezing Cardiovascular: S1, S2 Abdomen: Soft, Non-tender Neuro Exam: Alert Extremities: No Edema Skin: Warm Labs Laboratory Tests Test 04/09/19 22:01 04/10/19 07:00 04/10/19 10:57 04/10/19 13:30 White Blood Count 6.0 x10^3/uL (4.0-11.0) Red Blood Count 4.51 x10^6/uL (3.50-5.40) Hemoglobin 13.0 g/dL (12.0-15.5) Hematocrit 39.5 % (36.0-47.0) Mean Corpuscular Volume 88 fL (79-100) Mean Corpuscular Hemoglobin 29 pg (25-35) Mean Corpuscular Hemoglobin Concent 33 g/dL (31-37) Red Cell Distribution Width 16.0 % (11.5-14.5) Platelet Count 324 x10^3/uL (140-400) Neutrophils (%) (Auto) 62 % (31-73) Lymphocytes (%) (Auto) 25 % (24-48) Monocytes (%) (Auto) 9 % (0-9) Eosinophils (%) (Auto) 3 % (0-3) Basophils (%) (Auto) 1 % (0-3) Neutrophils # (Auto) 3.7 x10^3/uL (1.8-7.7) Lymphocytes # (Auto) 1.5 x10^3/uL (1.0-4.8) Monocytes # (Auto) 0.5 x10^3/uL (0.0-1.1) Eosinophils # (Auto) 0.2 x10^3/uL (0.0-0.7) Basophils # (Auto) 0.1 x10^3/uL (0.0-0.2) Prothrombin Time 20.0 SEC (11.7-14.0) Prothromb Time International Ratio 1.7 (0.8-1.1) Activated Partial Thromboplast Time 36 SEC (24-38) D-Dimer (Verenice) 2.35 ug/mlFEU (0.00-0.50) Sodium Level 145 mmol/L (136-145) Potassium Level 3.4 mmol/L (3.5-5.1) Chloride Level 107 mmol/L (98-107) Carbon Dioxide Level 28 mmol/L (21-32) Anion Gap 10 (6-14) Blood Urea Nitrogen 15 mg/dL (7-20) Creatinine 0.9 mg/dL (0.6-1.0) Estimated GFR (Cockcroft-Gault) 78.1 BUN/Creatinine Ratio 17 (6-20) Glucose Level 106 mg/dL (70-99) Calcium Level 9.3 mg/dL (8.5-10.1) Magnesium Level 1.9 mg/dL (1.8-2.4) Total Bilirubin 0.3 mg/dL (0.2-1.0) Aspartate Amino Transf (AST/SGOT) 12 U/L (15-37) Alanine Aminotransferase (ALT/SGPT) 19 U/L (14-59) Alkaline Phosphatase 93 U/L (46-116) Creatine Kinase 51 U/L (26-192) Creatine Kinase MB (Mass) 0.7 ng/mL (0.0-3.6) Creatine Kinase MB Relative Index % (0-4) Troponin I Quantitative < 0.017 ng/mL (0.000-0.055) < 0.017 ng/mL (0.000-0.055) < 0.017 ng/mL (0.000-0.055) RK-Iho-E-Type Natriuretic Peptide 79 pg/mL (0-124) Total Protein 7.6 g/dL (6.4-8.2) Albumin 3.2 g/dL (3.4-5.0) Albumin/Globulin Ratio 0.7 (1.0-1.7) Lipase 69 U/L (73-393) O2 Saturation 79 % (92-99) Arterial Blood pH 7.40 (7.35-7.45) Arterial Blood pCO2 at Patient Temp 46 mmHg (35-46) Arterial Blood pO2 at Patient Temp 43 mmHg (75-108) Arterial Blood HCO3 27 mmol/L (21-28) Arterial Blood Base Excess 2 mmol/L (-3-3) Test 04/11/19 06:05 Triglycerides Level 95 mg/dL (0-150) Cholesterol Level 167 mg/dL (0-200) LDL Cholesterol, Calculated 96 mg/dL (0-100) VLDL Cholesterol, Calculated 19 mg/dL (0-40) Non-HDL Cholesterol Calculated 115 mg/dL (0-129) HDL Cholesterol 52 mg/dL (40-60) Cholesterol/HDL Ratio 3.2 Laboratory Tests Test 04/10/19 10:57 04/10/19 13:30 04/11/19 06:05 O2 Saturation 79 % (92-99) Arterial Blood pH 7.40 (7.35-7.45) Arterial Blood pCO2 at Patient Temp 46 mmHg (35-46) Arterial Blood pO2 at Patient Temp 43 mmHg (75-108) Arterial Blood HCO3 27 mmol/L (21-28) Arterial Blood Base Excess 2 mmol/L (-3-3) Troponin I Quantitative < 0.017 ng/mL (0.000-0.055) Triglycerides Level 95 mg/dL (0-150) Cholesterol Level 167 mg/dL (0-200) LDL Cholesterol, Calculated 96 mg/dL (0-100) VLDL Cholesterol, Calculated 19 mg/dL (0-40) Non-HDL Cholesterol Calculated 115 mg/dL (0-129) HDL Cholesterol 52 mg/dL (40-60) Cholesterol/HDL Ratio 3.2 Medications Active Scripts Medications Dose Route/Sig Max Daily Dose Days Date Category Tramadol-Acetaminophn 37.5-325 (Tramadol Hcl/Acetaminophen) 1 Each Tablet 1 Tab PO TID 01/15/19 Rx Levofloxacin 500 Mg Tablet 1 Tab PO DAILY 01/15/19 Rx Proair Hfa Inhaler (Albuterol Sulfate) 8.5 Gm Hfa.aer.ad 1 Puff INH PRN Q6HRS PRN 01/14/19 Reported Montelukast Sodium Tablet (Montelukast Sodium) 10 Mg Tablet 10 Mg PO HS 01/14/19 Reported Lipitor (Atorvastatin Calcium) 10 Mg Tablet 1 Tab PO DAILY 01/14/19 Reported Norvasc (Amlodipine Besylate) 10 Mg Tablet 10 Mg PO DAILY 01/14/19 Reported Losartan Potassium 100 Mg Tablet 100 Mg PO DAILY 01/14/19 Reported Celexa (Citalopram Hydrobromide) 40 Mg Tablet 1 Tab PO DAILY 01/14/19 Reported Hydrocodone-Apap 5-325 (Hydrocodone Bit/Acetaminophen) 1 Each Tablet 1 Tab PO PRN Q6HRS PRN 4 08/01/18 Rx Haldol Decanoate 100 (Haloperidol Decanoate) 100 Mg/1 Ml Ampul 100 Mg IM 02/04/14 Reported Acid Truck Dispatcher (Famotidine) 20 Mg Tablet 20 Mg PO 02/04/14 Reported Impression . IMPRESSION: 1. Acute hypoxic respiratory failure secondary to acute exacerbation of chronic obstructive pulmonary disease. 2. Acute bronchitis. 3. Chest pain with no evidence of pulmonary embolism. Consider Cardiology evaluation. 4. Underlying obstructive sleep apnea with unable to use CPAP as she has been living in her car and has poor social help. Plan . RECOMMENDATIONS: 1. Continue with present oxygen, keep saturations 92% and above. 2. add DuoNebs. 3. add ICS 4. Weight loss is strongly advised. 5. program services planner consult. 6. Home CPAP when she is able to find her a home. 7. No need for antibiotics at present. 8. Her pulmonary hypertension seen on CT chest is likely related to her chronic obstructive pulmonary disease and underlying obstructive sleep apnea. 9. avoid oversedation We will follow along with JUAN morelos TANNAZ MD Apr 11, 2019 07:35
--- NOTE | 2019-04-11 08:36 | PDOC ---
PROGRESS NOTES Chief Complaint Chief Complaint A/P: Chest pain - ruling out STEMI, trop x2 and EKG negative. Could be 2/2 respiratory failure Shortness of breath - hypoxic respiratory failure, negative for PE. She appears to have signs of pulm HTN on CT. Will obtain echo. ABG now. Consult pulm Acute encephalopathy - likely from underlying psychotic disroder Bipolar disorder - with Anxiety with depression - will cont meds. increase her antipsychotics ?CHF - BNP is negative, however she definitely is exhibiting clinical right sided failure COPD - visible on her imaging studies, no available PFTs. Seen by pulmonology previously. She appears to have element of restrictive disease from her morbid obesity Fibromyalgia - cont meds High Cholesterol - cont statin Hypertension - cont meds Morbid obesity - counseled on weight loss, likely has OHS Homelessness - Pt lives in her car Obstructive sleep apnea - intermittently compliant with CPAP. FEN - Cardiac diet PPX - INR 1.7, will assess what she is on, needs full med rec FULL CODE Inpatient for acute hypoxia History of Present Illness History of Present Illness Ms Driscoll is a 58yo F w/ PMHx smoker, Anxiety, CHF, COPD, Depression, Fibromyalgia, High Cholesterol, Hypertension, morbid obesity who presents to ED c/o chest pain and shortness of breath. She states she was just discharged from [facility] right after being discharged from here. She continues to fall asleep during patient interview, but is able to tell me she just moved from [place] last June 2018 and is struggling with housing instability (homeless ness) currently and has not filled her medications she was given at [facility]. In ED there had been concern for acute PE, CTPA was negative. Troponins negative x2. EKG sinus tachy without ST segmental changes. Potassium low at 3.4. INR 1.7. This morning she is off her O2, shortness of breath improved. She is much more agitated, disorganized, psychotic. Vitals Vitals Vital Signs Date Time Temp Pulse Resp B/P (MAP) Pulse Ox O2 Delivery O2 Flow Rate FiO2 04/11/19 06:33 96 Nasal Cannula 2.0 04/11/19 03:00 98.1 84 22 147/107 (120) 98.1 Physical Exam General: Alert, Oriented X3 Heart: Regular rate Lungs: Wheezing Abdomen: Soft Extremities: No edema Skin: No rashes, No breakdown, No significant lesion Labs LABS Laboratory Tests Test 8/9/19 10:57 04/10/19 13:30 04/11/19 06:05 O2 Saturation 79 % (92-99) Arterial Blood pH 7.40 (7.35-7.45) Arterial Blood pCO2 at Patient Temp 46 mmHg (35-46) Arterial Blood pO2 at Patient Temp 43 mmHg (75-108) Arterial Blood HCO3 27 mmol/L (21-28) Arterial Blood Base Excess 2 mmol/L (-3-3) Troponin I Quantitative < 0.017 ng/mL (0.000-0.055) Triglycerides Level 95 mg/dL (0-150) Cholesterol Level 167 mg/dL (0-200) LDL Cholesterol, Calculated 96 mg/dL (0-100) VLDL Cholesterol, Calculated 19 mg/dL (0-40) Non-HDL Cholesterol Calculated 115 mg/dL (0-129) HDL Cholesterol 52 mg/dL (40-60) Cholesterol/HDL Ratio 3.2 Assessment and Plan Assessmemt and Plan Problems Medical Problems: (1) Chest pain Status: Acute Comment Review of Relevant I have reviewed the following items jose (where applicable) has been applied. Labs Laboratory Tests Test 04/09/19 22:01 04/10/19 07:00 04/10/19 10:57 04/10/19 13:30 White Blood Count 6.0 x10^3/uL (4.0-11.0) Red Blood Count 4.51 x10^6/uL (3.50-5.40) Hemoglobin 13.0 g/dL (12.0-15.5) Hematocrit 39.5 % (36.0-47.0) Mean Corpuscular Volume 88 fL (79-100) Mean Corpuscular Hemoglobin 29 pg (25-35) Mean Corpuscular Hemoglobin Concent 33 g/dL (31-37) Red Cell Distribution Width 16.0 % (11.5-14.5) Platelet Count 324 x10^3/uL (140-400) Neutrophils (%) (Auto) 62 % (31-73) Lymphocytes (%) (Auto) 25 % (24-48) Monocytes (%) (Auto) 9 % (0-9) Eosinophils (%) (Auto) 3 % (0-3) Basophils (%) (Auto) 1 % (0-3) Neutrophils # (Auto) 3.7 x10^3/uL (1.8-7.7) Lymphocytes # (Auto) 1.5 x10^3/uL (1.0-4.8) Monocytes # (Auto) 0.5 x10^3/uL (0.0-1.1) Eosinophils # (Auto) 0.2 x10^3/uL (0.0-0.7) Basophils # (Auto) 0.1 x10^3/uL (0.0-0.2) Prothrombin Time 20.0 SEC (11.7-14.0) Prothromb Time International Ratio 1.7 (0.8-1.1) Activated Partial Thromboplast Time 36 SEC (24-38) D-Dimer (Verenice) 2.35 ug/mlFEU (0.00-0.50) Sodium Level 145 mmol/L (136-145) Potassium Level 3.4 mmol/L (3.5-5.1) Chloride Level 107 mmol/L (98-107) Carbon Dioxide Level 28 mmol/L (21-32) Anion Gap 10 (6-14) Blood Urea Nitrogen 15 mg/dL (7-20) Creatinine 0.9 mg/dL (0.6-1.0) Estimated GFR (Cockcroft-Gault) 78.1 BUN/Creatinine Ratio 17 (6-20) Glucose Level 106 mg/dL (70-99) Calcium Level 9.3 mg/dL (8.5-10.1) Magnesium Level 1.9 mg/dL (1.8-2.4) Total Bilirubin 0.3 mg/dL (0.2-1.0) Aspartate Amino Transf (AST/SGOT) 12 U/L (15-37) Alanine Aminotransferase (ALT/SGPT) 19 U/L (14-59) Alkaline Phosphatase 93 U/L (46-116) Creatine Kinase 51 U/L (26-192) Creatine Kinase MB (Mass) 0.7 ng/mL (0.0-3.6) Creatine Kinase MB Relative Index % (0-4) Troponin I Quantitative < 0.017 ng/mL (0.000-0.055) < 0.017 ng/mL (0.000-0.055) < 0.017 ng/mL (0.000-0.055) NR-Hiz-F-Type Natriuretic Peptide 79 pg/mL (0-124) Total Protein 7.6 g/dL (6.4-8.2) Albumin 3.2 g/dL (3.4-5.0) Albumin/Globulin Ratio 0.7 (1.0-1.7) Lipase 69 U/L (73-393) O2 Saturation 79 % (92-99) Arterial Blood pH 7.40 (7.35-7.45) Arterial Blood pCO2 at Patient Temp 46 mmHg (35-46) Arterial Blood pO2 at Patient Temp 43 mmHg (75-108) Arterial Blood HCO3 27 mmol/L (21-28) Arterial Blood Base Excess 2 mmol/L (-3-3) Test 04/11/19 06:05 Triglycerides Level 95 mg/dL (0-150) Cholesterol Level 167 mg/dL (0-200) LDL Cholesterol, Calculated 96 mg/dL (0-100) VLDL Cholesterol, Calculated 19 mg/dL (0-40) Non-HDL Cholesterol Calculated 115 mg/dL (0-129) HDL Cholesterol 52 mg/dL (40-60) Cholesterol/HDL Ratio 3.2 Laboratory Tests Test 04/10/19 10:57 04/10/19 13:30 04/11/19 06:05 O2 Saturation 79 % (92-99) Arterial Blood pH 7.40 (7.35-7.45) Arterial Blood pCO2 at Patient Temp 46 mmHg (35-46) Arterial Blood pO2 at Patient Temp 43 mmHg (75-108) Arterial Blood HCO3 27 mmol/L (21-28) Arterial Blood Base Excess 2 mmol/L (-3-3) Troponin I Quantitative < 0.017 ng/mL (0.000-0.055) Triglycerides Level 95 mg/dL (0-150) Cholesterol Level 167 mg/dL (0-200) LDL Cholesterol, Calculated 96 mg/dL (0-100) VLDL Cholesterol, Calculated 19 mg/dL (0-40) Non-HDL Cholesterol Calculated 115 mg/dL (0-129) HDL Cholesterol 52 mg/dL (40-60) Cholesterol/HDL Ratio 3.2 Medications Current Medications Aspirin (Angel Luis Aspirin) 325 mg 1X ONCE PO Last administered on 04/09/19at 22:20; Start 04/09/19 at 22:15; Stop 04/09/19 at 22:16; Status DC Sodium Chloride 1,000 ml @ 1,000 mls/hr 1X ONCE IV Last administered on 04/09/19at 23:50; Start 04/09/19 at 23:45; Stop 04/10/19 at 00:44; Status DC Iohexol (Omnipaque 350 Mg/ml) 100 ml 1X ONCE IV Last administered on 04/10/19 00:21; Start 04/10/19 at 00:15; Stop 04/10/19 at 00:16; Status DC Info (CONTRAST GIVEN -- Rx MONITORING) 1 each PRN DAILY PRN MC SEE COMMENTS; Start 04/10/19 at 00:15; Stop 04/12/19 at 00:14 Ondansetron HCl (Zofran) 4 mg PRN Q8HRS PRN IV NAUSEA/VOMITING; Start 04/10/19 at 01:00; Stop 04/11/19 at 00:59; Status DC Fentanyl Citrate (Fentanyl 2ml Vial) 50 mcg PRN Q2HR PRN IV PAIN Last administered on 04/10/19at 15:23; Start 04/10/19 at 01:00 Albuterol Sulfate (Ventolin Neb Soln) 2.5 mg PRN Q6HRS PRN INH SHORTNESS OF BREATH Last administered on 04/11/19at 06:33; Start 04/10/19 at 09:30 Amlodipine Besylate (Norvasc) 10 mg DAILY PO ; Start 04/11/19 at 09:00 Atorvastatin Calcium (Lipitor) 10 mg DAILY PO ; Start 04/11/19 at 09:00 Famotidine (Pepcid) 20 mg DAILY PO ; Start 04/11/19 at 09:00 Montelukast Sodium (Singulair) 10 mg HS PO Last administered on 04/10/19at 21:21; Start 04/10/19 at 21:00 Citalopram Hydrobromide (CeleXA) 40 mg DAILY PO Last administered on 04/10/19 11:37; Start 04/10/19 at 10:00 Losartan Potassium (Cozaar) 100 mg DAILY PO Last administered on 04/10/19 11:37; Start 04/10/19 at 10:00 Metoprolol Tartrate (Lopressor) 37.5 mg BID PO Last administered on 04/10/19at 21:21; Start 04/10/19 at 21:00 Quetiapine Fumarate (SEROquel) 25 mg BID PO ; Start 04/10/19 at 21:00 Nystatin (Nystatin Oral Susp) 5 ml [id number] Last administered on 04/10/19at 21:21; Start 04/10/19 at 21:00 Acetaminophen (Tylenol) 650 mg PRN Q6HRS PRN PO PAIN Last administered on 04/11/19at 04:01; Start 04/10/19 at 20:15 Albuterol/ Ipratropium (Duoneb) 3 ml RTQID NEB ; Start 04/11/19 at 08:00 Budesonide (Pulmicort) 0.5 mg RTBID NEB ; Start 04/11/19 at 08:00 Active Scripts Active Tramadol-Acetaminophn 37.5-325 (Tramadol Hcl/Acetaminophen) 1 Each Tablet 1 Tab PO TID Levofloxacin 500 Mg Tablet 1 Tab PO DAILY Hydrocodone-Apap 5-325 (Hydrocodone Bit/Acetaminophen) 1 Each Tablet 1 Tab PO PRN Q6HRS PRN 4 Days Reported Proair Hfa Inhaler (Albuterol Sulfate) 8.5 Gm Hfa.aer.ad 1 Puff INH PRN Q6HRS PRN Montelukast Sodium Tablet (Montelukast Sodium) 10 Mg Tablet 10 Mg PO HS Lipitor (Atorvastatin Calcium) 10 Mg Tablet 1 Tab PO DAILY Norvasc (Amlodipine Besylate) 10 Mg Tablet 10 Mg PO DAILY Losartan Potassium 100 Mg Tablet 100 Mg PO DAILY Celexa (Citalopram Hydrobromide) 40 Mg Tablet 1 Tab PO DAILY Haldol Decanoate 100 (Haloperidol Decanoate) 100 Mg/1 Ml Ampul 100 Mg IM Acid Electrical Assembly Supervisor (Famotidine) 20 Mg Tablet 20 Mg PO Vitals/I & O Vital Sign - Last 24 Hours 04/10/19 04/10/19 04/10/19 04/10/19 10:40 11:37 15:00 15:23 Temp 98.1 98.2 98.1 98.2 Pulse 95 95 86 Resp 18 20 18 B/P (MAP) 145/97 (113) 145/97 129/85 (100) Pulse Ox 92 91 O2 Delivery Nasal Cannula Nasal Cannula Nasal Cannula O2 Flow Rate 3.0 8/9/19 04/10/19 04/10/19 04/10/19 16:45 19:00 19:40 21:21 Temp 97.8 97.8 Pulse 96 86 Resp 18 B/P (MAP) 138/84 (102) 129/85 Pulse Ox 91 94 O2 Delivery Nasal Cannula Nasal Cannula Nasal Cannula O2 Flow Rate 3.0 2.0 3.0 04/10/19 04/11/19 04/11/19 23:00 03:00 06:33 Temp 98.1 98.1 98.1 98.1 Pulse 82 84 Resp 20 22 B/P (MAP) 124/75 (91) 147/107 (120) Pulse Ox 97 98 96 O2 Delivery Nasal Cannula Nasal Cannula Nasal Cannula O2 Flow Rate 2.0 2.0 2.0 Intake and Output 04/10/19 04/10/19 04/11/19 15:00 23:00 07:00 Intake Total 0 ml Output Total 200 ml 200 ml 125 ml Balance -200 ml -200 ml -125 ml DAREN ROSALES MD Apr 11, 2019 08:36
[2019-04-11] MEDS ORDERED: POTASSIUM CHLORIDE 20 MEQ TABLET.ER. PO ONE (08:45)
[2019-04-11] MEDS: QUEtiapine 25 MG TABLET. PO SCH ×3 (09:00→20:44)
[2019-04-11] MEDS: amLODIPine BESYLATE 10 MG TABLET PO SCH (09:00)
[2019-04-11] MEDS ORDERED: MAGNESIUM SULFATE 1GM 100 ML IV ONE (09:30)
[2019-04-11] MEDS: METOPROLOL TART IMMED RELEASE 25 MG TABLET. PO SCH ×2 (10:33→20:45)
[2019-04-11] MEDS: FAMOTIDINE 20 MG TABLET. PO SCH (10:33)
[2019-04-11] MEDS: ATORVASTATIN CALCIUM 10 MG TABLET. PO SCH (10:33)
[2019-04-11] MEDS: NYSTATIN 100,000 UNITS/ML 5 ML ORAL.SUSP. SWSW SCH ×4 (10:34→20:44)
[2019-04-11] MEDS: CITALOPRAM 20 MG TABLET. PO SCH (10:34)
[2019-04-11] MEDS: LOSARTAN POTASSIUM 50 MG TABLET. PO SCH (10:34)
[2019-04-11 11:00] VITALS: BP 155/90
[2019-04-11] MEDS ORDERED: HALOPERIDOL 2 MG/ML ORAL.CONC. PO PRN (11:00)
[2019-04-11] MEDS: BUDESONIDE 0.5 MG/2 ML NEBU. NEB SCH ×2 (12:04→21:59)
[2019-04-11] MEDS: IPRATRPIUM/ALBUTEROL 0.5/2.5MG 3 ML NEBU. NEB SCH ×3 (12:04→21:59)
[2019-04-11 14:57] VITALS: BP 132/78
[2019-04-11 19:35] VITALS: BP 153/79
[2019-04-11] MEDS: MONTELUKAST SODIUM 10 MG TABLET. PO SCH (20:44)
[2019-04-11] MEDS: fentaNYL PF VIAL 100 MCG/2 ML VIAL IV PRN (22:16)
[2019-04-11 23:35] VITALS: BP 129/78
[2019-04-12] MEDS: fentaNYL PF VIAL 100 MCG/2 ML VIAL IV PRN ×2 (03:27→09:11)
[2019-04-12 03:51] VITALS: BP 140/81
[2019-04-12] MEDS: ACETAMINOPHEN 325 MG TABLET. PO PRN ×2 (06:31→17:14)
--- NOTE | 2019-04-12 07:43 | PDOC ---
PULMONARY PROGRESS NOTES Subjective on 02, sob better, has cough, no pain, not on home 02, has cpap, is homeless Vitals Vital Signs Date Time Temp Pulse Resp B/P (MAP) Pulse Ox O2 Delivery O2 Flow Rate FiO2 04/12/19 04:07 16 Nasal Cannula 2.0 04/12/19 03:51 97.9 98 140/81 (100) 94 97.9 ROS: No Nausea General: Alert, No acute distress HEENT: Other (nc at perr) Lungs: Other (deminished bs) Cardiovascular: S1, S2 Abdomen: Soft, Non-tender Neuro Exam: Alert Extremities: No Edema Skin: Warm Labs Laboratory Tests Test 04/10/19 10:57 04/10/19 13:30 04/11/19 06:05 O2 Saturation 79 % (92-99) Arterial Blood pH 7.40 (7.35-7.45) Arterial Blood pCO2 at Patient Temp 46 mmHg (35-46) Arterial Blood pO2 at Patient Temp 43 mmHg (75-108) Arterial Blood HCO3 27 mmol/L (21-28) Arterial Blood Base Excess 2 mmol/L (-3-3) Troponin I Quantitative < 0.017 ng/mL (0.000-0.055) Triglycerides Level 95 mg/dL (0-150) Cholesterol Level 167 mg/dL (0-200) LDL Cholesterol, Calculated 96 mg/dL (0-100) VLDL Cholesterol, Calculated 19 mg/dL (0-40) Non-HDL Cholesterol Calculated 115 mg/dL (0-129) HDL Cholesterol 52 mg/dL (40-60) Cholesterol/HDL Ratio 3.2 Medications Active Scripts Medications Dose Route/Sig Max Daily Dose Days Date Category Tramadol-Acetaminophn 37.5-325 (Tramadol Hcl/Acetaminophen) 1 Each Tablet 1 Tab PO TID 01/15/19 Rx Levofloxacin 500 Mg Tablet 1 Tab PO DAILY 01/15/19 Rx Proair Hfa Inhaler (Albuterol Sulfate) 8.5 Gm Hfa.aer.ad 1 Puff INH PRN Q6HRS PRN 01/14/19 Reported Montelukast Sodium Tablet (Montelukast Sodium) 10 Mg Tablet 10 Mg PO HS 01/14/19 Reported Lipitor (Atorvastatin Calcium) 10 Mg Tablet 1 Tab PO DAILY 01/14/19 Reported Norvasc (Amlodipine Besylate) 10 Mg Tablet 10 Mg PO DAILY 01/14/19 Reported Losartan Potassium 100 Mg Tablet 100 Mg PO DAILY 01/14/19 Reported Celexa (Citalopram Hydrobromide) 40 Mg Tablet 1 Tab PO DAILY 01/14/19 Reported Hydrocodone-Apap 5-325 (Hydrocodone Bit/Acetaminophen) 1 Each Tablet 1 Tab PO PRN Q6HRS PRN 4 08/01/18 Rx Haldol Decanoate 100 (Haloperidol Decanoate) 100 Mg/1 Ml Ampul 100 Mg IM 02/04/14 Reported Acid Summer Babysitter (Famotidine) 20 Mg Tablet 20 Mg PO 02/04/14 Reported Impression . IMPRESSION: 1. Acute hypoxic respiratory failure secondary to acute exacerbation of chronic obstructive pulmonary disease. 2. Acute bronchitis. 3. Chest pain with no evidence of pulmonary embolism. Consider Cardiology evaluation. 4. Underlying obstructive sleep apnea with unable to use CPAP as she has been living in her car and has poor social help. Plan . RECOMMENDATIONS: 1. Continue with present oxygen, keep saturations 92% and above. 2. DuoNebs. 3. ICS 4. Weight loss is strongly advised. 5. enterprise services manager consult. 6. has CPAP but is homeless. 7. No need for antibiotics at present. 8. Her pulmonary hypertension seen on CT chest is likely related to her chronic obstructive pulmonary disease and underlying obstructive sleep apnea. 9. avoid oversedation We will follow along with JUAN morelos TANNAZ MD Apr 12, 2019 07:43
[2019-04-12 08:07] VITALS: BP 142/95
--- NOTE | 2019-04-12 08:21 | PDOC ---
PROGRESS NOTES Chief Complaint Chief Complaint A/P: Chest pain - ruling out STEMI, trop x2 and EKG negative. Could be 2/2 respiratory failure Shortness of breath - hypoxic respiratory failure, negative for PE. She appears to have signs of pulm HTN on CT. Will obtain echo. ABG now. Consult pulm Acute encephalopathy - likely from underlying psychotic disroder Bipolar disorder - with Anxiety with depression - will cont meds. increase her antipsychotics ?CHF - BNP is negative, however she definitely is exhibiting clinical right sided failure COPD - visible on her imaging studies, no available PFTs. Seen by pulmonology previously. She appears to have element of restrictive disease from her morbid obesity Fibromyalgia - cont meds High Cholesterol - cont statin Hypertension - cont meds Morbid obesity - counseled on weight loss, likely has OHS Homelessness - Pt lives in her car Obstructive sleep apnea - intermittently compliant with CPAP - ok to use home device FEN - Cardiac diet PPX - INR 1.7, will assess what she is on, needs full med rec FULL CODE Inpatient for acute hypoxia History of Present Illness History of Present Illness Ms Driscoll is a 58yo F w/ PMHx smoker, Anxiety, CHF, COPD, Depression, Fibromyalgia, High Cholesterol, Hypertension, morbid obesity who presents to ED c/o chest pain and shortness of breath. She states she was just discharged from [facility] right after being discharged from here. She continues to fall asleep during patient interview, but is able to tell me she just moved from [place] last June 2018 and is struggling with housing instability (homelessness) currently and has not filled her medications she was given at [place]. In ED there had been concern for acute PE, CTPA was negative. Troponins negative x2. EKG sinus tachy without ST segmental changes. Potassium low at 3.4. INR 1.7. 04/11: She is much more agitated, disorganized, psychotic. This morning she is back on O2, shortness of breath improved slightly. Did not sleep well last night, notably gasping. She finally realizes her car is in the parking lot and would be ok with us going to her car to get meds and home CPAP. Plan: Home CPAP tonight YESSY to assist with [facility] on d/c - she wishes to go to [place], [place] Possible d/c in AM Vitals Vitals Vital Signs Date Time Temp Pulse Resp B/P (MAP) Pulse Ox O2 Delivery O2 Flow Rate FiO2 04/12/19 04:07 16 Nasal Cannula 2.0 04/12/19 03:51 97.9 98 140/81 (100) 94 97.9 Physical Exam General: Alert, Oriented X3 Heart: Regular rate Lungs: Wheezing Abdomen: Soft Extremities: No edema Skin: No rashes, No breakdown, No significant lesion Assessment and Plan Assessmemt and Plan Problems Medical Problems: (1) Chest pain Status: Acute Comment Review of Relevant I have reviewed the following items jose (where applicable) has been applied. Labs Laboratory Tests Test 04/10/19 10:57 04/10/19 13:30 04/11/19 06:05 O2 Saturation 79 % (92-99) Arterial Blood pH 7.40 (7.35-7.45) Arterial Blood pCO2 at Patient Temp 46 mmHg (35-46) Arterial Blood pO2 at Patient Temp 43 mmHg (75-108) Arterial Blood HCO3 27 mmol/L (21-28) Arterial Blood Base Excess 2 mmol/L (-3-3) Troponin I Quantitative < 0.017 ng/mL (0.000-0.055) Triglycerides Level 95 mg/dL (0-150) Cholesterol Level 167 mg/dL (0-200) LDL Cholesterol, Calculated 96 mg/dL (0-100) VLDL Cholesterol, Calculated 19 mg/dL (0-40) Non-HDL Cholesterol Calculated 115 mg/dL (0-129) HDL Cholesterol 52 mg/dL (40-60) Cholesterol/HDL Ratio 3.2 Medications Current Medications Aspirin (Angel Luis Aspirin) 325 mg 1X ONCE PO Last administered on 04/09/19at 22:20; Start 04/09/19 at 22:15; Stop 04/09/19 at 22:16; Status DC Sodium Chloride 1,000 ml @ 1,000 mls/hr 1X ONCE IV Last administered on 04/09/19at 23:50; Start 04/09/19 at 23:45; Stop 04/10/19 at 00:44; Status DC Iohexol (Omnipaque 350 Mg/ml) 100 ml 1X ONCE IV Last administered on 04/10/19at 00:21; Start 04/10/19 at 00:15; Stop 04/10/19 at 00:16; Status DC Info (CONTRAST GIVEN -- Rx MONITORING) 1 each PRN DAILY PRN MC SEE COMMENTS; Start 04/10/19 at 00:15; Stop 04/12/19 at 00:14; Status DC Ondansetron HCl (Zofran) 4 mg PRN Q8HRS PRN IV NAUSEA/VOMITING; Start 04/10/19 at 01:00; Stop 04/11/19 at 00:59; Status DC Fentanyl Citrate (Fentanyl 2ml Vial) 50 mcg PRN Q2HR PRN IV PAIN Last administered on 04/12/19at 03:27; Start 04/10/19 at 01:00 Albuterol Sulfate (Ventolin Neb Soln) 2.5 mg PRN Q6HRS PRN INH SHORTNESS OF BREATH Last administered on 04/11/19at 06:33; Start 04/10/19 at 09:30 Amlodipine Besylate (Norvasc) 10 mg DAILY PO ; Start 04/11/19 at 09:00 Atorvastatin Calcium (Lipitor) 10 mg DAILY PO Last administered on 04/11/19 10:39; Start 04/11/19 at 09:00 Famotidine (Pepcid) 20 mg DAILY PO Last administered on 04/11/19 10:39; Start 04/11/19 at 09:00 Montelukast Sodium (Singulair) 10 mg HS PO Last administered on 04/11/19 20:45; Start 04/10/19 at 21:00 Citalopram Hydrobromide (CeleXA) 40 mg DAILY PO Last administered on 04/11/19 10:39; Start 04/10/19 at 10:00 Losartan Potassium (Cozaar) 100 mg DAILY PO Last administered on 04/11/19 10:39; Start 04/10/19 at 10:00 Metoprolol Tartrate (Lopressor) 37.5 mg BID PO Last administered on 04/11/19 20:45; Start 04/10/19 at 21:00 Quetiapine Fumarate (SEROquel) 25 mg BID PO ; Start 04/10/19 at 21:00; Stop 04/11/19 at 10:51; Status DC Nystatin (Nystatin Oral Susp) 5 ml [id number] Last administered on 04/11/19at 20:45; Start 04/10/19 at 21:00 Acetaminophen (Tylenol) 650 mg PRN Q6HRS PRN PO PAIN Last administered on 04/12/19at 06:33; Start 04/10/19 at 20:15 Albuterol/ Ipratropium (Duoneb) 3 ml RTQID NEB Last administered on 04/11/19at 21:59; Start 04/11/19 at 08:00 Budesonide (Pulmicort) 0.5 mg RTBID NEB Last administered on 04/11/19at 21:59; Start 04/11/19 at 08:00 Potassium Chloride (Klor-Con) 40 meq 1X ONCE PO Last administered on 04/11/19 10:39; Start 04/11/19 at 08:45; Stop 04/11/19 at 08:46; Status DC Magnesium Sulfate/ Dextrose 100 ml @ 100 mls/hr 1X ONCE IV Last administered on 04/11/19at 10:39; Start 04/11/19 at 09:30; Stop 04/11/19 at 10:29; Status DC Haloperidol Lactate (HALDOL 2mg ORAL CONC) 2 mg PRN TID PRN PO AGITATION; Start 04/11/19 at 11:00 Quetiapine Fumarate (SEROquel) 50 mg BID PO Last administered on 04/11/19at 20:45; Start 04/11/19 at 11:00 Active Scripts Active Tramadol-Acetaminophn 37.5-325 (Tramadol Hcl/Acetaminophen) 1 Each Tablet 1 Tab PO TID Levofloxacin 500 Mg Tablet 1 Tab PO DAILY Hydrocodone-Apap 5-325 (Hydrocodone Bit/Acetaminophen) 1 Each Tablet 1 Tab PO PRN Q6HRS PRN 4 Days Reported Proair Hfa Inhaler (Albuterol Sulfate) 8.5 Gm Hfa.aer.ad 1 Puff INH PRN Q6HRS PRN Montelukast Sodium Tablet (Montelukast Sodium) 10 Mg Tablet 10 Mg PO HS Lipitor (Atorvastatin Calcium) 10 Mg Tablet 1 Tab PO DAILY Norvasc (Amlodipine Besylate) 10 Mg Tablet 10 Mg PO DAILY Losartan Potassium 100 Mg Tablet 100 Mg PO DAILY Celexa (Citalopram Hydrobromide) 40 Mg Tablet 1 Tab PO DAILY Haldol Decanoate 100 (Haloperidol Decanoate) 100 Mg/1 Ml Ampul 100 Mg IM Acid Regional Vice President Surgical Sales (Famotidine) 20 Mg Tablet 20 Mg PO Vitals/I & O Vital Sign - Last 24 Hours 04/11/19 04/11/19 04/11/19 04/11/19 10:39 10:39 10:39 11:00 Temp 98.0 98.0 Pulse 101 101 101 90 Resp 24 B/P (MAP) 150/79 150/79 150/79 155/90 (111) Pulse Ox 97 O2 Delivery Nasal Cannula O2 Flow Rate 2.0 04/11/19 04/11/19 04/11/19 04/11/19 12:06 14:57 16:03 19:35 Temp 98.2 98.2 98.2 98.2 Pulse 95 87 Resp 24 18 B/P (MAP) 132/78 (96) 153/79 (103) Pulse Ox 96 99 96 98 O2 Delivery Nasal Cannula Nasal Cannula Nasal Cannula Nasal Cannula O2 Flow Rate 2.0 2.0 2.0 2.0 04/11/19 04/11/19 04/11/19 04/11/19 20:00 20:45 21:59 22:16 Pulse 87 Resp 16 B/P (MAP) 153/79 Pulse Ox 97 O2 Delivery Nasal Cannula Nasal Cannula Room Air O2 Flow Rate 2.0 2.0 2.0 04/11/19 04/12/19 04/12/19 04/12/19 23:35 00:00 03:27 03:51 Temp 98.1 97.9 98.1 97.9 Pulse 17 98 Resp 16 16 18 B/P (MAP) 129/78 (95) 140/81 (100) Pulse Ox 96 97 94 O2 Delivery Nasal Cannula Nasal Cannula Nasal Cannula Room Air O2 Flow Rate 2.0 2.0 2.0 04/12/19 04:07 Resp 16 O2 Delivery Nasal Cannula O2 Flow Rate 2.0 Intake and Output 04/11/19 04/11/19 04/12/19 14:59 22:59 06:59 Intake Total 100 ml 700 ml Balance 100 ml 700 ml DAREN ROSALES MD Apr 12, 2019 08:21
[2019-04-12] MEDS: IPRATRPIUM/ALBUTEROL 0.5/2.5MG 3 ML NEBU. NEB SCH ×4 (08:57→20:13)
[2019-04-12] MEDS: BUDESONIDE 0.5 MG/2 ML NEBU. NEB SCH ×2 (08:57→20:13)
[2019-04-12] MEDS: amLODIPine BESYLATE 10 MG TABLET PO SCH (09:00)
[2019-04-12] MEDS: FAMOTIDINE 20 MG TABLET. PO SCH (09:11)
[2019-04-12] MEDS: QUEtiapine 25 MG TABLET. PO SCH ×2 (09:11→21:49)
[2019-04-12] MEDS: ATORVASTATIN CALCIUM 10 MG TABLET. PO SCH (09:11)
[2019-04-12] MEDS: CITALOPRAM 20 MG TABLET. PO SCH (09:11)
[2019-04-12] MEDS: LOSARTAN POTASSIUM 50 MG TABLET. PO SCH (09:12)
[2019-04-12] MEDS: NYSTATIN 100,000 UNITS/ML 5 ML ORAL.SUSP. SWSW SCH ×4 (09:12→21:49)
[2019-04-12] MEDS: METOPROLOL TART IMMED RELEASE 25 MG TABLET. PO SCH ×2 (09:12→21:51)
[2019-04-12 11:59] VITALS: BP 151/78
[2019-04-12 15:00] VITALS: BP 118/70
[2019-04-12 19:00] VITALS: BP 159/75
[2019-04-12] MEDS: MONTELUKAST SODIUM 10 MG TABLET. PO SCH (21:49)
[2019-04-12 23:00] VITALS: BP 119/87
[2019-04-13 03:06] VITALS: BP 131/71
[2019-04-13] MEDS: ACETAMINOPHEN 325 MG TABLET. PO PRN ×2 (06:31→17:45)
[2019-04-13 07:00] VITALS: BP 124/85
[2019-04-13] MEDS: IPRATRPIUM/ALBUTEROL 0.5/2.5MG 3 ML NEBU. NEB SCH ×3 (07:48→15:40)
[2019-04-13] MEDS: BUDESONIDE 0.5 MG/2 ML NEBU. NEB SCH (07:49)
--- NOTE | 2019-04-13 09:18 | PDOC ---
PULMONARY PROGRESS NOTES Subjective no increase soa Vitals Vital Signs Date Time Temp Pulse Resp B/P (MAP) Pulse Ox O2 Delivery O2 Flow Rate FiO2 04/13/19 07:53 97 Nasal Cannula 2.0 04/13/19 07:00 97.5 82 16 124/85 (98) 97.5 ROS: No Nausea General: Alert, No acute distress HEENT: Other (nc at perrl) Lungs: Other (deminished bs) Cardiovascular: S1, S2 Abdomen: Soft, Non-tender Neuro Exam: Alert Extremities: No Edema Skin: Warm Labs Laboratory Tests Test 04/12/19 16:34 04/13/19 07:14 Glucose (Fingerstick) 129 mg/dL (70-99) 118 mg/dL (70-99) Laboratory Tests Test 04/12/19 16:34 04/13/19 07:14 Glucose (Fingerstick) 129 mg/dL (70-99) 118 mg/dL (70-99) Medications Active Scripts Medications Dose Route/Sig Max Daily Dose Days Date Category Tramadol-Acetaminophn 37.5-325 (Tramadol Hcl/Acetaminophen) 1 Each Tablet 1 Tab PO TID 01/15/19 Rx Levofloxacin 500 Mg Tablet 1 Tab PO DAILY 01/15/19 Rx Proair Hfa Inhaler (Albuterol Sulfate) 8.5 Gm Hfa.aer.ad 1 Puff INH PRN Q6HRS PRN 01/14/19 Reported Montelukast Sodium Tablet (Montelukast Sodium) 10 Mg Tablet 10 Mg PO HS 01/14/19 Reported Lipitor (Atorvastatin Calcium) 10 Mg Tablet 1 Tab PO DAILY 01/14/19 Reported Norvasc (Amlodipine Besylate) 10 Mg Tablet 10 Mg PO DAILY 01/14/19 Reported Losartan Potassium 100 Mg Tablet 100 Mg PO DAILY 01/14/19 Reported Celexa (Citalopram Hydrobromide) 40 Mg Tablet 1 Tab PO DAILY 01/14/19 Reported Hydrocodone-Apap 5-325 (Hydrocodone Bit/Acetaminophen) 1 Each Tablet 1 Tab PO PRN Q6HRS PRN 4 08/01/18 Rx Haldol Decanoate 100 (Haloperidol Decanoate) 100 Mg/1 Ml Ampul 100 Mg IM 02/04/14 Reported Acid Tour Production Supervisor (Famotidine) 20 Mg Tablet 20 Mg PO 02/04/14 Reported Impression . IMPRESSION: 1. Acute hypoxic respiratory failure secondary to acute exacerbation of chronic obstructive pulmonary disease. 2. Acute bronchitis. 3. Chest pain with no evidence of pulmonary embolism. Consider Cardiology evaluation. 4. Underlying obstructive sleep apnea with unable to use CPAP as she has been living in her car and has poor social help. Plan . [facility] RATNA COTA MD Apr 13, 2019 09:18
[2019-04-13] MEDS: METOPROLOL TART IMMED RELEASE 25 MG TABLET. PO SCH (09:56)
[2019-04-13] MEDS: QUEtiapine 25 MG TABLET. PO SCH (09:57)
[2019-04-13] MEDS: FAMOTIDINE 20 MG TABLET. PO SCH (09:57)
[2019-04-13] MEDS: CITALOPRAM 20 MG TABLET. PO SCH (09:58)
[2019-04-13] MEDS: LOSARTAN POTASSIUM 50 MG TABLET. PO SCH (09:58)
[2019-04-13] MEDS: NYSTATIN 100,000 UNITS/ML 5 ML ORAL.SUSP. SWSW SCH ×3 (09:59→17:46)
[2019-04-13] MEDS: amLODIPine BESYLATE 10 MG TABLET PO SCH (09:59)
[2019-04-13] MEDS: ATORVASTATIN CALCIUM 10 MG TABLET. PO SCH (10:05)
[2019-04-13 11:00] VITALS: BP 140/68
[2019-04-13] MEDS ORDERED: METO25TA4 PO (13:12)
[2019-04-13] MEDS ORDERED: QUET50TA5 PO (13:14)
[2019-04-13] MEDS ORDERED: POTASSIUM CHLORIDE 20 MEQ TABLET.ER. PO ONE (13:15)
[2019-04-13] MEDS ORDERED: FUROSEMIDE 40 MG/4 ML VIAL. IVP ONE (13:15)
[2019-04-13 15:00] VITALS: BP 128/89
--- NOTE | 2019-04-13 16:30 | NUR ---
SW following pt for dc planning. Chart reviewed and discussed with RN. Pt had already made arrangements to go to [facility] tomorrow[facility]
--- NOTE | 2019-04-13 18:10 | NUR ---
Patient discharged home to self. Patient has made arrangements for lodging tonight, and has made "reservation" for prison tomorrow. Patient appears to be in good spirits. Patient related that she would be following up with the Drs at [place].
== END 2019-04-13 18:10 | disposition home or self-care (01) | DRG 190 ==
LOC: ER 21:45 → 2 SOUTH 04-10 00:55 → OBSVTOIN 04-10 09:44 → 5 NORTH 04-12 15:57
PROVIDERS: ADMIT Internal Medicine; ATTEND Internal Medicine
PROC: 5A09357 Assistance with Respiratory Ventilation, Less than 24 Consecutive Hours, Continuous Positive Airway Pressure (ICD-10-PCS; principal; 2019-04-13)
DX: J44.0 Chronic obstructive pulmonary disease with (acute) lower respiratory infection (principal); J96.01 Acute respiratory failure with hypoxia; G93.41 Metabolic encephalopathy; Z68.44 Body mass index [BMI] 60.0-69.9, adult; I50.32 Chronic diastolic (congestive) heart failure; J44.1 Chronic obstructive pulmonary disease with (acute) exacerbation; J20.9 Acute bronchitis, unspecified; M79.7 Fibromyalgia; I11.0 Hypertensive heart disease with heart failure; E78.00 Pure hypercholesterolemia, unspecified; Z96.649 Presence of unspecified artificial hip joint; E78.5 Hyperlipidemia, unspecified; E66.01 Morbid (severe) obesity due to excess calories; M06.9 Rheumatoid arthritis, unspecified; F17.210 Nicotine dependence, cigarettes, uncomplicated; F41.8 Other specified anxiety disorders; G47.33 Obstructive sleep apnea (adult) (pediatric); F31.9 Bipolar disorder, unspecified; Z98.891 History of uterine scar from previous surgery; Z90.49 Acquired absence of other specified parts of digestive tract; Z59.0 Homelessness
CPT/HCPCS: 36415; 71275; 80053; 80061; 82553; 82805; 82962; 83690; 83735; 83880; 84484; 85025; 85379; 85610; 85730; 93005; 94618; 94640; 94660; 94760; G0378; G0379; J1940; J3010; J3475; J7030; J7613; J7620; J7626; Q9967; 99285-25